=== PATIENT | female | born 1935 | race Caucasian/White ===

== ENCOUNTER 2016-11-13 12:24 | Inpatient (IN) | payer OTHER, BC ==
[~2016-11-13] VITALS: Ht 157.5 cm; Wt 87.8 kg
--- NOTE | ~2016-11-13 | H ---
[facility] [place] [address] HISTORY AND PHYSICAL Name: VIOLETA PALM Room #: 304-P ADM IN M.R.#: [id number] Admission: 11/13/16 Attend Phys: Humza Bentley, DO Discharge: Date of : 34 Report #: [id number] THIS REPORT FOR: //name// CC: Jose Manuel Bentley TYPE OF DICTATION: Admission H and P after [id number] encounter. I did see the patient and examined her on the day of admission. CHIEF COMPLAINT: The patient is transferred from [facility] secondary to fever and deteriorating of condition. HISTORY OF PRESENT ILLNESS: An 81-year-old female who was admitted to [facility] with pneumonia, and she started to have some desaturation and she was transferred to the ICU there. The patient was having pneumonia and she was treated for that, but her condition is deteriorating and she has some fevers. Oxygen saturation is decreasing, but she is on oxygen 2 liters and she is saturating well now. The patient is complaining of pain all over, but probably she cannot specify a certain place to declare as a source of the pain. Per her daughter, the patient was in the [facility] for the last 3 days and she was well and all of a sudden she deteriorated and then she became well and then she deteriorated again, so they do not know what is going on with her. REVIEW OF SYSTEMS: Except that mentioned in the HPI, all other systems are negative. PAST MEDICAL HISTORY: Includes: 1. Insulin-dependent diabetes mellitus. 2. History of CVA. 3. Coronary artery disease. 4. Congestive heart failure. 5. Status post coronary stents. 6. Hypertension and a history of CA. 7. COPD. 8. GERD. 9. Recent urinary tract infection, recurrent. 10. Osteoarthritis. 11. Depression. PAST SURGICAL HISTORY: Positive for hysterectomy and hip replacement. FAMILY HISTORY: Positive for cancer, diabetes and heart disease. SOCIAL HISTORY: She is a former smoker. Denies alcohol abuse or illicit drugs. The patient is living alone. PHYSICAL EXAMINATION: [facility] [address] [place] [address] HISTORY AND PHYSICAL Name: VIOLETA PALM Room #: 304-P [facility] IN ..#: [id number] Admission: 11/13/16 Attend Phys: Humza Bentley DO Discharge: Date of : 34 Report #: [id number] GENERAL: She is alert and oriented but hard of hearing. VITAL SIGNS: Stable. HEENT: PERRLA. Intact extraocular muscles. No icterus. NECK: Supple, no JVD, no bruit and no thyroid. CHEST: Good air entry, but there are expiratory wheezes on the right side of the chest. ABDOMEN: Lax, nontender, positive bowel sounds, no organomegaly appreciated. Obese CARDIOVASCULAR: Regular rate and rhythm. No murmur, rub or gallop. EXTREMITIES: No cyanosis, clubbing or edema. There is an ulcer on the right lower extremity. LABORATORY DATA: No available data for now. ASSESSMENT AND PLAN: 1. Acute febrile illness: This may be secondary to health care associated pneumonia. We are going to start her on antibiotics for now and we are going to follow her CBC and give her antipyretic treatment. In the same time, the patient is going to be seen by the Pulmonary. 2. Chronic obstructive pulmonary disease exacerbation seems to ____ chronic obstructive pulmonary disease. We are going to continue nebulizers, give her some steroids and follow her closely with the pulmonary doctor. 3. Insulin-dependent diabetes mellitus. We are going to check her blood sugars a.c. and bedtime and give her insulin as needed. 4. Stage III kidney disease 3. Her creatinine count is 1.01, so we ____ follow on that. 5. Coronary artery disease, status post stents and congestive heart failure. We are going to ask Cardiology to evaluate the patient for now. 6. Left lower extremity skin ulcer. Wound care. <ELECTRONICALLY SIGNED> By: Aj Bethea MD 11/14/16 0924 1413 1517 Aj Bethea MD /nt
--- NOTE | ~2016-11-13 | HC ---
[facility] [place] [address] CONSULTATION Name: VIOLETA PALM Room #: 304-P [facility] IN M.R.#: [id number] Admission: 11/13/16 Attend Phys: Sophia Medina MD Discharge: Date of : 34 Report #: [id number] THIS REPORT FOR: //name// CC: Jose Manuel Medina REASON FOR CONSULTATION: I was asked to evaluate concerning pneumonia and diarrhea. HISTORY OF PRESENT ILLNESS: The patient was an 81-year-old with underlying history of diabetes, coronary artery disease, congestive heart failure, COPD, who was hospitalized at outside hospital approximately 1 week ago with diagnosis of pneumonia, shortness of breath, low-grade fever, increased oxygen demand. While in hospital, she developed further dyspnea and was transferred to [facility] for further treatment. Found to have pneumonia and exacerbation of COPD. Since transfer, she remains on and off CPAP and BiPAP. Now off oxygen altogether. No fever, chills or sweats. Hemodynamically has remained stable. She had some loose stools starting prior to admission and that has worsened. Now incontinent. No nausea, vomiting or abdominal pain. Denies any fever or chills. Her last white count on the was normal. PAST MEDICAL HISTORY: Diabetes, stroke, coronary artery disease, congestive heart failure, coronary stents, [place], hypertension, COPD, gastroesophageal reflux, osteoarthritis, depression, hysterectomy, hip replacement, urinary tract infection, C. difficile colitis, most recent was in July. ALLERGIES: IBUPROFEN, CLINDAMYCIN, PHENERGAN, PROMETHAZINE. MEDICATIONS: As noted on her MAR including vancomycin, Zosyn, Levaquin. FAMILY HISTORY: Cancer, diabetes, heart disease. SOCIAL HISTORY: Past smoker, no significant alcohol intake. REVIEW OF SYSTEMS: As noted above. PHYSICAL EXAMINATION: VITAL SIGNS: Afebrile and hemodynamically stable. GENERAL: She is alert and cooperative, moderately obese. HEENT: Unremarkable other than hard of hearing. NECK: Supple. LUNGS: Crackles heard in the bases bilaterally. HEART: Regular without murmur. ABDOMEN: Soft, protuberant, nontender, no hepatosplenomegaly or mass appreciated. EXTREMITIES: Venous stasis dermatitis changes and a small ulceration, left pretibial skin. [address] [address] CONSULTATION Name: VIOLETA PALM Room #: 304-P ADM IN M.R.#: [id number] Admission: 11/13/16 Attend Phys: Sophia Medina MD Discharge: Date of : 34 Report #: [id number] LABORATORY STUDIES: Sodium 143, potassium 3.5, bicarbonate 29, creatinine 1.3, blood glucose 253. Liver function tests normal. Albumin at 2.7. BNP is pending from November 16. Hemoglobin is 11, white count 10, platelet count 147,000. Differential unremarkable. Vancomycin level 22 yesterday. MRSA screen pending. C. difficile PCR pending. Respiratory viral panel pending. Urinalysis, many RBCs, sputum culture pending. Chest x-ray, interstitial infiltrates improved, mild perihilar infiltrates with minimal lower lobe atelectasis. IMPRESSION: An 81-year-old with pneumonia, exacerbation of chronic obstructive pulmonary disease and heart failure, now with antibiotic-associated diarrhea, possible relapse of her Clostridium difficile colitis. Would recommend adjusting her antibiotic therapy while awaiting Clostridium difficile by PCR. <ELECTRONICALLY SIGNED> By: Dell Vizcaino MD 11/21/16 1022 1355 1080 Dell Vizcaino MD /nt
--- NOTE | ~2016-11-13 | EKG ---
[address] [place] [address] ELECTROCARDIOGRAM REPORT Name: VIOLETA PALM Room #: 304-P ADM IN M.R.#: [id number] Admission: 11/13/16 Attend Phys: Sophia Medina MD Discharge: Date of : 34 Report #: [id number] THIS REPORT FOR: //name// [facility] Test Date: 2016-11-21 Test Time: 07:40:47 Pat Name: VIOLETA PALM Department: Room: 304 Gender: F Director Investor Relations: namita : 1935 Requested By: Gavin Alexis Order Number: [id number] MD: Avel Ram Measurements Intervals [place] Rate: 57 P: 23 AR: 193 QRS: 22 QRSD: 93 T: 60 QT: 519 QTc: 506 Interpretive Statements Sinus rhythm ventricular premature complexes Inferior infarct, old Prolonged QT interval Compared to ECG 08/24/2016 16:18:24 Ventricular premature complex(es) now present Right bundle-branch block no longer present Electronically Signed On 11-22-2016 8:48:36 COMPTOMETRIST by Avel Ram [email or web address] <ELECTRONICALLY SIGNED> By: Avel Ram MD, [facility] 11/22/16 0848 0740 Avel Ram MD, [facility] /EPI
--- NOTE | ~2016-11-13 | HC ---
[facility] [place] [address] CONSULTATION Name: VIOLETA PALM Room #: 304-P ADM IN M.R.#: [id number] Admission: 11/13/16 Attend Phys: Humza Bentley DO Discharge: Date of : 34 Report #: [id number] THIS REPORT FOR: //name// CC: Jose Manuel KEMP DO Humza Bentley DATE OF SERVICE: 11/14/2016 HISTORY OF PRESENT ILLNESS: The patient is an 81-year-old single white female I was asked to see in the hospital today after she complained of being short of breath. The patient has an extensive past medical history. She has a stent placed in her LAD in 2007. Repeat heart catheterization in 2008 showed no restenosis. She has a history of paroxysmal atrial fibrillation. She was taken off of Pradaxa in the past, because of bleeding. Her last nuclear stress test in 2012 showed no ischemia. Her last echocardiogram in 2013 showed normal left ventricular function. I actually just saw her in the clinic a month ago. She is not very active because of arthritis. She currently is in assisted living. The patient apparently was admitted to [facility] last week, for the UTI. She was given IV fluids. She then readmitted 3 days ago there with confusion. Over the weekend, she had increasing shortness of breath. She was transferred to [facility] yesterday by ambulance. I was asked to see her for further evaluation and treatment. She does note occasional chest pain. She has been coughing. She is on oxygen. She has had no palpitations or syncope. PAST MEDICAL HISTORY: Otherwise significant for cataract surgery, hip replacement, bladder surgery, sleep apnea, spinal stenosis, rotator cuff repair of her shoulder. She has a history of hypertension and hyperlipidemia. She has had a history of atrial fibrillation. She has sleep apnea and chronic kidney disease. MEDICATIONS: Consists of sotalol, Symbicort, insulin, aspirin, Neurontin, Imdur, clonidine, allopurinol, sertraline, spironolactone, and torsemide. ALLERGIES: She has intolerance to IBUPROFEN. FAMILY HISTORY: Father had heart attack. SOCIAL HISTORY: She is , currently lives in an assisted living in [place], [place]. Her daughter Kristi Nieto is a nurse researcher at [employer], that I have known her for years. She did not smoke for years. No alcohol abuse. REVIEW OF SYSTEMS: She apparently had a TIA in the past with slurred speech. She has a history of asthma. No peptic ulcer disease. No liver disease. She [address] [address] CONSULTATION Name: VIOLETA PALM Room #: 304-P [facility] IN .R.#: [id number] Admission: 11/13/16 Attend Phys: Humza Bentley DO Discharge: Date of : 34 Report #: [id number] does have chronic kidney disease. No cancer. She has arthritis. No chronic skin condition. No psychiatric illness. PHYSICAL EXAMINATION: GENERAL: Revealed an elderly, frail appearing female, who is lying in bed. VITAL SIGNS: She has blood pressure of 120/70, pulse of 70. She is afebrile. HEENT: She is anicteric. Mucous membranes are moist. NECK: Veins do not appear distended. CHEST: Reveal coarse breath sounds bilaterally. CARDIAC: Regular rate and rhythm. ABDOMEN: Obese. EXTREMITIES: She had no edema. Dorsalis pedis pulse could not be palpated. SKIN: Cool and dry. DIAGNOSTIC STUDIES: She had a chest x-ray last night that showed infiltrates in the right lung and left upper lobe. No pleural effusion and mild cardiomegaly. LABORATORY DATA: Sodium 143, creatinine 1.2. Liver function studies are normal. White blood cell count is 7.5. Hematocrit 37.4. IMPRESSION AND RECOMMENDATIONS: 1. Pneumonia. The patient is on antibiotics. 2. Coronary artery disease. The patient with stable angina. 3. History of atrial fibrillation. The patient is on sotalol. She does not appear to be a very good candidate for anticoagulation. 4. Hypertension. The patient has been on a beta kayla and clonidine. 5. Diabetes. 6. Hyperlipidemia. The patient could not tolerate statin drugs. 7. Sleep apnea. 8. Chronic kidney disease. The patient has been followed by nephrology. <ELECTRONICALLY SIGNED> By: Gavin Alexis MD, [facility] 11/15/16 0951 0852 1212 Gavin Alexis MD, FAC /nt
--- NOTE | ~2016-11-13 | 2DMMODE ---
[facility] [place] [address] 2 D/M-MODE ECHOCARDIOGRAM Name: VIOLETA PALM Room #: 304-P ADM IN Richard.#: [id number] Admission: 11/13/16 Attend Phys: Sophia Medina MD Discharge: Date of : 34 Date of Service: 11/15/16 1222 Report #: [id number] THIS REPORT FOR: //name// Transthoracic Echocardiography Ordering Gavin Alexis M.D., F.A.C.C. physician: Referring Gavin Alexis M.D., F.A.C.Chasity Muñoz, physician: Jose Manuel Meter Record Clerk: Radhika Castano Indications/History: Short of breath. Hx: CAD, Stents, CHF, CVA, Afib, COPD, DM, HTN, HLP BP: 149 / HR: 68bpm Height: 62in Weight: 195.6lb 79 Study data: M-mode, complete 2D, complete spectral Doppler, and color Doppler. Location: Bedside. Routine. Image quality was adequate. 2D measurements Normal Normal LVID ED 48.6mm 36-57 IVS ED 13.1mm 6-11 LVID ES 28.5mm 23-40 LVPW ED 12.8mm 6-11 LA volume 37ml/m2 16-28 AoRoot diam 29.2mm 21-37 index ED LVOT diameter 19mm 18-23 Findings: Left ventricle: The cavity size was normal. Wall thickness was increased in a pattern of mild LVH. Systolic function was hyperdynamic. The estimated ejection fraction was in the range of 65% to 70%. Wall motion was normal. Right ventricle: The cavity size was normal. Systolic function was normal. Right atrium: The atrium was normal in size. Left atrium: The atrium was moderately dilated. Volume index: 37ml/m2 (S). Aortic valve: Poorly visualized. Doppler: There was very [facility] [address] [place] [place] [address] 2 D/M-MODE ECHOCARDIOGRAM Name: VIOLETA PALM Room #: 304-P ADM IN M.R.#: [id number] Admission: 11/13/16 Attend Phys: Sophia Medina MD Discharge: Date of : 34 Date of Service: 11/15/16 1222 Report #: [id number] mild stenosis. Trivial regurgitation. Peak velocity: 265.6cm/s (S). Mean gradient: 13.1mm Hg (S). Peak gradient: 28.2mm Hg (S). Mitral valve: Moderately to severely calcified annulus. Doppler: The findings are consistent with trivial stenosis. Mild regurgitation. Peak E-wave velocity: 142.4cm/s. Peak gradient: 8.1mm Hg (D). Peak A-wave velocity: 133.2cm/s. Tricuspid valve: Structurally normal valve. Doppler: There was no evidence for stenosis. Moderate regurgitation. Regurgitant peak velocity: 415cm/s. Peak RV-RA gradient: 69mm Hg (S). Pulmonic valve: Poorly visualized. Doppler: There was no evidence for stenosis. Pericardium: There was no pericardial effusion. Aorta: Aortic root: The aortic root was normal in size. Pulmonary artery: Systolic pressure was estimated to be 60mm Hg. Diastolic function: Features are consistent with a pseudonormal left ventricular filling pattern, with concomitant abnormal relaxation and increased filling pressure (grade 2 diastolic dysfunction). Systemic veins: Inferior vena cava: The vessel was normal in size; respirophasic changes in dimension were absent. Conclusions 1. Left ventricle: The cavity size was normal. Wall thickness was increased in a pattern of mild LVH. Systolic function was hyperdynamic. The estimated ejection fraction was in the range of 65% to 70%. 2. Left atrium: The atrium was moderately dilated. 3. Aortic valve: There was very mild stenosis. Peak gradient: 28.2mm Hg (S). 4. Mitral valve: The findings are consistent with trivial stenosis. Mild regurgitation. 5. Tricuspid valve: Moderate regurgitation. 6. Pulmonary arteries: Systolic pressure was estimated to be 60mm Hg. <ELECTRONICALLY SIGNED> By: Gavin Alexis MD, FACC 11/15/16 1453 1222 1453 Gavin Alexis MD, FACC /[place]
--- NOTE | ~2016-11-13 | EKG ---
[address] [place] [address] ELECTROCARDIOGRAM REPORT Name: VIOLETA PALM Room #: 304-P ADM IN M.R.#: [id number] Admission: 11/13/16 Attend Phys: Sophia Medina MD Discharge: Date of : 34 Report #: [id number] THIS REPORT FOR: //name// [facility] Test Date: 2016-11-20 Test Time: 07:38:45 Pat Name: VIOLETA PALM Department: Room: 304 P Gender: F Repairer Helper: KIARA : 1935 Requested By: Gavin Alexis Order Number: [id number] MD: Avel Ram Measurements Intervals [place] Rate: 67 P: ME: QRS: 39 QRSD: 146 T: 11 QT: 499 QTc: 527 Interpretive Statements Atrial fibrillation Right bundle branch block Inferior infarct, old Compared to ECG 08/24/2016 16:18:24 Atrial fibrillation has replaced PSVT Electronically Signed On 11-22-2016 8:30:47 COMPLIANCE PROJECT MANAGER by Avel Ram [email or web address] <ELECTRONICALLY SIGNED> By: Avel Ram MD, [facility] 11/22/16 0830 737 7 Avel Ram MD, FACC /EPI
--- NOTE | ~2016-11-13 | HC ---
[facility] [place] [address] CONSULTATION Name: VIOLETA PALM Room #: 304-P [facility] IN ..#: [id number] Admission: 11/13/16 Attend Phys: Sophia Medina MD Discharge: 11/23/16 Date of : 34 Report #: [id number] THIS REPORT FOR: //name// CC: Jose Manuel Medina DATE OF SERVICE: 11/16/2016 PERSONAL PHYSICIAN: Remington Hermosillo MD CHIEF COMPLAINT: Left lower extremity atraumatic wound. HISTORY OF PRESENT ILLNESS: This is an 81-year-old white female who is currently admitted to the hospital for increasing shortness of breath over the past several days. The patient was diagnosed with pneumonia, is currently on IV antibiotics. The patient states that approximately 2 weeks ago, she struck her leg on her hospital bed, suffered a traumatic wound. The patient states that she was concerned that she might be getting an infection in that wound and requested to be seen by a cardiology clinical nurse specialist while she was here in the hospital. The patient denies any other associated wound except for small skin tear to her left forearm. The patient states she has really no pain in her left leg. The patient denies any actual swelling in her legs now, but had swelling prior to the hospitalization, but these have resolved. PAST MEDICAL HISTORY: Significant for previous hip replacement, sleep apnea, spinal stenosis, hypertension, hyperlipidemia, chronic atrial fibrillation, and chronic kidney disease. CURRENT MEDICATIONS: Multiple, I reviewed the patient's medication list. DRUG ALLERGIES: IBUPROFEN. SOCIAL HISTORY: The patient has a remote history of smoking, quit 18 years ago, lives in an assisted living facility. REVIEW OF SYSTEMS: CONSTITUTIONAL: The patient denies fevers or chills at this time. NEUROLOGIC: The patient with overall generalized weakness. EYES: No complaints. RESPIRATORY: The patient is currently short breath with associated wheezing and she is on oxygen. GASTROINTESTINAL: The patient denies nausea, vomiting, or abdominal pain. GENITOURINARY: The patient denies urgency or frequency. MUSCULOSKELETAL: No complaints. SKIN: The patient has a traumatic wound, which appears to be healing on the left lower extremity. [address] [address] CONSULTATION Name: VIOLETA PALM Room #: 304-P [facility] IN ..#: [id number] Admission: 11/13/16 Attend Phys: Sophia Medina MD Discharge: 11/23/16 Date of : 34 Report #: [id number] PHYSICAL EXAMINATION: VITAL SIGNS: Stable. The patient is afebrile. GENERAL: This is an alert and oriented x3, pleasant white female who is absolutely in no distress. HEENT: Normocephalic and atraumatic. Mucous membranes are dry. Pupils are round. Sclerae are white. Nasal cannula is in place. NECK: Without JVD or masses. BACK: Nontender. LUNGS: Slight diminished breath sounds with scattered wheezes heard throughout. HEART: Irregularly irregular. ABDOMEN: Soft, otherwise nontender and obese. EXTREMITIES: Evaluation of bilateral lower extremities reveals trace to 1+ edema with distal neurovascular otherwise intact. Evaluation of left lower extremity reveals a traumatic wound, which measures 1.8 x 0.6 x 0.3 cm. It is fairly clean and granulating. Periwound itself is otherwise intact without signs of erythema, warmth or tenderness. There are no signs of any odor. NEUROLOGIC: Cranial nerves 2-12 are grossly intact. Motor and sensory are grossly intact. LABORATORY VALUES: White count 10.1 and hemoglobin 11.5. IMPRESSION: 1. Traumatic wound in the left pretibial region, present on admission, overall improving. 2. Chronic lower extremity edema, overall controlled. 3. Pneumonia. 4. Generalized debility. PLAN: At this time, we will start the patient with Optifoam AG over the left lower extremity wound, have this changed every 2 days. The patient refuses any type of compression at this time over the lower extremities. However, raise her legs as much as possible to control the edema. We will continue to follow the patient. We will try to maximize her protein supplementation for healing. We will once again continue to follow the status. <ELECTRONICALLY SIGNED> By: Alvaro Mensah MD 12/01/16 1257 1636 0236 Alvaro Mensah MD /nt
[~2016-11-13 12:24] MED LIST: ACCUPRIL40 MG PO; AGGRENOX 25 MG1 EACH PO; ALBUTEROL2.5 MG/31; ALDACTONE25 MG PO; ALLOPURINOL 30300 M2 PO; ASPIRIN EC81 M1 PO; ASPIRIN325 PO; ASPIRIN81 M2 PO; B-COMPLEX-VITA1 EACH PO; CARDIZEM CD120 MG PO; CARVEDILOL6.25 MG PO; CLONIDINE HCL0.3 M2 PO; CLONIDINE HCL0.3 M3 PO; CO Q-10100 MG PO; COREG CR20 MG PO; COZAAR 50 MG TA50 M1 PO; DUONEB 2.5-0.5 M3 ML INH; FISH OIL 1,0001 EAC5 PO; FLAX OIL1000 MG PO; HUMALOG MI100 UNIT/6 SUBQ; HUMALOG100 UNIT/1 SUBQ; HYDROCODON-ACE1 EAC2 PO; HYDROCODON-ACE1 EAC8 PO; IMDUR 30 MG TAB30 M1 PO; K-DUR 20 MEQ T20 MEQ PO; KLOR-CON 1010 MEQ PO; LANTUS SUBQ; LASIX 80 MG TAB80 M1 PO; LASIX 80 MG TAB80 MG PO; LIPITOR20 MG PO; MAG6464 MG PO; METOLAZONE 2.52.5 M1 PO; MULTI VITAMIN1 EACH PO; NEURONTIN 300300 M1 PO; NITROSTAT0.4 M1 SL; NORCO 7.5-3251 EACH PO; POTASSIUM CHLO20 ME2 PO; POTASSIUM20 PO; PRADAXA150 MG PO; PREDNISONE 5 MG5 M1 PO; PROAIR HFA8.5 GM PO; SORINE 80 MG TA80 M1 PO; SYMBICORT160 MCG/4. INH; TESSALON PERLE100 MG PO; TORSEMIDE20 MG PO; VENTOLIN HFA 1818 GM INH; VITAMIN D1000 UNI1 PO; VITAMINC500 PO; ZOLOFT100 MG PO
[2016-11-13 13:28] VITALS: BP 230/83
[2016-11-13 13:52] VITALS: BP 230/83
[2016-11-13 18:35] LABS: URINE BILIRUBIN NEGATIVE (Negative); URINE BLOOD 3+ (Negative); URINE COLOR YELLOW; URINE GLUCOSE-RANDOM* NEGATIVE (Negative); URINE KETONES NEGATIVE (Negative); URINE NITRITE NEGATIVE (Negative); URINE PROTEIN (DIPSTICK) TRACE (Negative); URINE UROBILINOGEN 0.2 E.U./dl (0.2-1.0)
[2016-11-13 18:46] LABS: CASTS None Seen /LPF (None Seen); SQUAMOUS 0-3 Few /LPF (0-3)
[2016-11-13 18:47] LABS: BACTERIA None Seen /HPF (None Seen); CRYSTALS None Seen /LPF (None Seen); URINE RBC >20 Many /HPF (0-2); URINE WBC 0-5 Rare /HPF (0-5)
[2016-11-13 19:20] VITALS: BP 133/61
[2016-11-13 23:49] VITALS: BP 112/60
[2016-11-14 02:17] VITALS: BP 147/70
[2016-11-14 03:59] LABS: HEMATOCRIT 37.4 % (37.0-47.0); HEMOGLOBIN 11.8 gm/dL (12.0-15.0); MCHC 31.6 % (28.0-37.0); MCV 91.8 fL (80.0-100.0); RBC 4.08 mil/uL (4.20-5.00); RDW 17.1 % (10.5-14.5); WBC 7.5 thou/uL (4.0-11.0)
[2016-11-14 04:17] LABS: ALBUMIN 2.5 g/dL (3.4-5.0); CALCIUM 8.5 mg/dL (8.5-10.1); CREATININE 1.2 mg/dL (0.6-1.3); MAGNESIUM 1.8 mg/dL (1.8-2.4); TOTAL BILIRUBIN 0.6 mg/dL (<0.1-1.0); TOTAL PROTEIN 6.1 g/dL (6.4-8.2)
[2016-11-14 07:06] LABS: ABG SAMPLE TYPE ARTERIAL; BE(vivo) 3.1 mmol/L (-2 to +3); LACTATE 1.32 mmol/L (0.5-2.0); O2(CT) 16.6 mL/dL (15.0-23.0); O2Hb 94.3 % (92.0-98.0); PCO2 63.8 mmHg (35.0-45.0); PO2 74.6 mmHg (80.0-100.0); sO2 93.2 % (92.0-98.0); tCO2 32.9 mmol/L (24.0-30.0)
[2016-11-14 07:07] LABS: STICK SITE R.BRACHIAL; pH 7.304 (7.360-7.450)
[2016-11-14 08:24] VITALS: BP 125/77
[2016-11-14 12:14] VITALS: BP 112/42
[2016-11-14 13:37] LABS: ABG SAMPLE TYPE ARTERIAL; BE(vivo) 3.7 mmol/L (-2 to +3); HCO3 30.1 mmol/L (22.0-26.0); LACTATE 2.11 mmol/L (0.5-2.0); O2(CT) 15.1 mL/dL (15.0-23.0); O2Hb 91.2 % (92.0-98.0); PCO2 53.9 mmHg (35.0-45.0); PO2 60.7 mmHg (80.0-100.0); pH 7.365 (7.360-7.450); sO2 90.1 % (92.0-98.0); tCO2 31.8 mmol/L (24.0-30.0)
[2016-11-14 13:38] LABS: STICK SITE R.BRACHIAL
[2016-11-14 16:08] VITALS: BP 111/54
[2016-11-14 20:00] VITALS: BP 133/68
[2016-11-15 03:32] VITALS: BP 113/53
[2016-11-15 04:43] LABS: HEMATOCRIT 33.8 % (37.0-47.0); HEMOGLOBIN 11.2 gm/dL (12.0-15.0); MCH 29.5 pg (26.0-34.0); MCHC 33.3 % (28.0-37.0); MCV 88.6 fL (80.0-100.0); PLATELET COUNT 126 thou/uL (150-400); RBC 3.82 mil/uL (4.20-5.00); RDW 17.1 % (10.5-14.5); WBC 8.7 thou/uL (4.0-11.0)
[2016-11-15 04:49] LABS: MANUAL DIFF YES
[2016-11-15 05:01] LABS: ALBUMIN 2.7 g/dL (3.4-5.0); CALCIUM 8.5 mg/dL (8.5-10.1); CREATININE 1.5 mg/dL (0.6-1.3); POTASSIUM 4.7 mmol/L (3.5-5.1); TOTAL BILIRUBIN 0.4 mg/dL (<0.1-1.0); TOTAL PROTEIN 5.7 g/dL (6.4-8.2)
[2016-11-15 05:20] LABS: ABSOLUTE NEUTROPHILS 7.6 thou/uL (1.4-8.2); TOTAL CELL COUNT 100
[2016-11-15 05:21] LABS: TOXIC GRANULATION 1+
[2016-11-15 07:09] LABS: ABG SAMPLE TYPE ARTERIAL; BE(vivo) 0.9 mmol/L (-2 to +3); HCO3 27.2 mmol/L (22.0-26.0); LACTATE 1.93 mmol/L (0.5-2.0); O2(CT) 15.6 mL/dL (15.0-23.0); O2Hb 92.2 % (92.0-98.0); PCO2 50.5 mmHg (35.0-45.0); PO2 65.9 mmHg (80.0-100.0); STICK SITE R.BRACHIAL; pH 7.349 (7.360-7.450); sO2 91.8 % (92.0-98.0); tCO2 28.7 mmol/L (24.0-30.0)
[2016-11-15 11:44] VITALS: BP 149/79
[2016-11-15 18:47] VITALS: BP 169/79
[2016-11-15 20:00] VITALS: BP 144/79
[2016-11-16 04:00] VITALS: BP 182/88
[2016-11-16 05:30] LABS: HEMATOCRIT 35.6 % (37.0-47.0); HEMOGLOBIN 11.5 gm/dL (12.0-15.0); MCH 29.1 pg (26.0-34.0); MCHC 32.3 % (28.0-37.0); RBC 3.95 mil/uL (4.20-5.00); WBC 10.1 thou/uL (4.0-11.0)
[2016-11-16 05:49] LABS: CALCIUM 9.1 mg/dL (8.5-10.1); CREATININE 1.3 mg/dL (0.6-1.3); POTASSIUM 4.2 mmol/L (3.5-5.1)
[2016-11-16 08:26] VITALS: BP 133/58
[2016-11-16 13:24] VITALS: BP 133/101
[2016-11-16 16:42] VITALS: BP 157/71
[2016-11-16 19:10] VITALS: BP 187/75
[2016-11-16 23:20] VITALS: BP 159/79
[2016-11-17] VITALS (7 sets, daily range): BP systolic 135–198; BP diastolic 65–89
[2016-11-17 07:05] LABS: CREATININE 1.3 mg/dL (0.6-1.3); POTASSIUM 3.5 mmol/L (3.5-5.1)
[2016-11-17 07:36] LABS: ABG SAMPLE TYPE ARTERIAL; BE(vivo) 3.3 mmol/L (-2 to +3); HCO3 28.6 mmol/L (22.0-26.0); LACTATE 2.06 mmol/L (0.5-2.0); O2(CT) 14.4 mL/dL (15.0-23.0); PCO2 46.2 mmHg (35.0-45.0); PO2 53.4 mmHg (80.0-100.0); STICK SITE R.BRACHIAL; pH 7.409 (7.360-7.450); sO2 87.8 % (92.0-98.0)
[2016-11-17 07:39] LABS: ABG COMMENT PT WAS ON ROOM AIR
[2016-11-18 03:40] VITALS: BP 159/70
[2016-11-18 07:13] VITALS: BP 184/78
[2016-11-18 15:51] VITALS: BP 135/66
[2016-11-18 20:00] VITALS: BP 134/76
[2016-11-19] VITALS: BP 139/83
[2016-11-19 02:10] LABS: INFLUENZA B Negative (Negative); METAPNEUMOVIRUS Negative (Negative)
[2016-11-19 04:00] VITALS: BP 149/77
[2016-11-19 06:12] LABS: HEMATOCRIT 36.7 % (37.0-47.0); HEMOGLOBIN 12.3 gm/dL (12.0-15.0); MCH 29.4 pg (26.0-34.0); MCHC 33.5 % (28.0-37.0); MCV 87.9 fL (80.0-100.0); PLATELET COUNT 177 thou/uL (150-400); RBC 4.17 mil/uL (4.20-5.00); RDW 16.8 % (10.5-14.5); WBC 12.1 thou/uL (4.0-11.0)
[2016-11-19 06:15] LABS: MANUAL DIFF YES
[2016-11-19 06:20] LABS: CALCIUM 8.7 mg/dL (8.5-10.1); CREATININE 1.3 mg/dL (0.6-1.3); MAGNESIUM 2.1 mg/dL (1.8-2.4); POTASSIUM 3.7 mmol/L (3.5-5.1)
[2016-11-19 06:44] LABS: ABSOLUTE NEUTROPHILS 11.3 thou/uL (1.4-8.2); ANISOCYTOSIS 1+; POLYCHROMASIA OCCASIONAL; TOTAL CELL COUNT 100
[2016-11-19 08:00] VITALS: BP 150/91
[2016-11-19 11:15] VITALS: BP 128/78
[2016-11-19 15:25] VITALS: BP 120/71
[2016-11-19 20:00] VITALS: BP 141/79
[2016-11-20 04:00] VITALS: BP 145/84
[2016-11-20 06:44] LABS: HEMATOCRIT 37.5 % (37.0-47.0); HEMOGLOBIN 12.4 gm/dL (12.0-15.0); MCHC 33.1 % (28.0-37.0); MCV 87.6 fL (80.0-100.0); PLATELET COUNT 199 thou/uL (150-400); RBC 4.28 mil/uL (4.20-5.00); RDW 17.1 % (10.5-14.5)
[2016-11-20 06:59] LABS: MANUAL DIFF YES
[2016-11-20 07:01] LABS: CALCIUM 9.1 mg/dL (8.5-10.1); CREATININE 1.3 mg/dL (0.6-1.3); MAGNESIUM 2.2 mg/dL (1.8-2.4); POTASSIUM 3.9 mmol/L (3.5-5.1)
[2016-11-20 07:53] LABS: ABSOLUTE NEUTROPHILS 11.4 thou/uL (1.4-8.2); PLATELET ESTIMATE NORMAL; TOTAL CELL COUNT 100
[2016-11-20 09:15] VITALS: BP 122/72
[2016-11-20 12:40] VITALS: BP 131/67
[2016-11-20 15:17] LABS: URINE BILIRUBIN NEGATIVE (Negative); URINE BLOOD NEGATIVE (Negative); URINE COLOR YELLOW; URINE GLUCOSE-RANDOM* 1+ (Negative); URINE KETONES NEGATIVE (Negative); URINE LEUKOCYTES-REFLEX NEGATIVE (Negative); URINE PROTEIN (DIPSTICK) NEGATIVE (Negative); URINE UROBILINOGEN 0.2 E.U./dl (0.2-1.0)
[2016-11-20 16:10] LABS: FREE T4 1.71 ng/dL (0.82-1.77); TSH 0.292 uIU/mL (0.450-4.500)
[2016-11-20 17:15] VITALS: BP 139/78
[2016-11-20 19:55] VITALS: BP 145/83
[2016-11-21 04:00] VITALS: BP 129/74
[2016-11-21 05:58] LABS: HEMATOCRIT 38.3 % (37.0-47.0); HEMOGLOBIN 12.5 gm/dL (12.0-15.0); MCH 28.8 pg (26.0-34.0); MCHC 32.7 % (28.0-37.0); MCV 88.2 fL (80.0-100.0); PLATELET COUNT 211 thou/uL (150-400); RBC 4.34 mil/uL (4.20-5.00); RDW 17.3 % (10.5-14.5); WBC 14.6 thou/uL (4.0-11.0)
[2016-11-21 06:02] LABS: CALCIUM 9.2 mg/dL (8.5-10.1); CREATININE 1.4 mg/dL (0.6-1.3); POTASSIUM 4.4 mmol/L (3.5-5.1)
[2016-11-21 06:31] LABS: MANUAL DIFF YES
[2016-11-21 08:20] VITALS: BP 125/70
[2016-11-21 08:47] LABS: ABSOLUTE NEUTROPHILS 13.1 thou/uL (1.4-8.2); MYELOCYTES 1 %; TOTAL CELL COUNT 100
[2016-11-21 08:48] LABS: ANISOCYTOSIS 1+
[2016-11-21 16:25] VITALS: BP 153/74
[2016-11-21 20:04] VITALS: BP 153/80
[2016-11-22 03:35] VITALS: BP 150/73
[2016-11-22 05:36] LABS: ABSOLUTE NEUTROPHILS 12.2 thou/uL (1.4-8.2); BASOPHILS 0.1 % (0.0-2.0); HEMATOCRIT 36.2 % (37.0-47.0); HEMOGLOBIN 11.7 gm/dL (12.0-15.0); LYMPHOCYTES 6.1 % (24.0-44.0); MCHC 32.4 % (28.0-37.0); MCV 89.5 fL (80.0-100.0); MONOCYTES 7.5 % (1.0-8.0); PLATELET COUNT 171 thou/uL (150-400); POLYS 86.3 % (36.0-66.0); RBC 4.04 mil/uL (4.20-5.00); WBC 14.2 thou/uL (4.0-11.0)
[2016-11-22 05:39] LABS: MANUAL DIFF NO
[2016-11-22 06:02] LABS: ALBUMIN 2.7 g/dL (3.4-5.0); CALCIUM 8.9 mg/dL (8.5-10.1); CREATININE 1.3 mg/dL (0.6-1.3); MAGNESIUM 2.4 mg/dL (1.8-2.4); POTASSIUM 4.9 mmol/L (3.5-5.1); TOTAL BILIRUBIN 0.6 mg/dL (<0.1-1.0); TOTAL PROTEIN 5.6 g/dL (6.4-8.2)
[2016-11-22 08:01] VITALS: BP 130/78
[2016-11-22 11:53] VITALS: BP 138/75
[2016-11-22 15:34] VITALS: BP 138/78
[2016-11-22 19:41] VITALS: BP 135/64
[2016-11-23 03:10] VITALS: BP 134/70
[2016-11-23 06:27] LABS: ABSOLUTE NEUTROPHILS 11.2 thou/uL (1.4-8.2); BASOPHILS 0.2 % (0.0-2.0); EOSINOPHILS 0.1 % (0.0-3.0); HEMATOCRIT 35.8 % (37.0-47.0); HEMOGLOBIN 11.6 gm/dL (12.0-15.0); LYMPHOCYTES 7.7 % (24.0-44.0); MCH 29.2 pg (26.0-34.0); MCHC 32.5 % (28.0-37.0); MCV 89.7 fL (80.0-100.0); MONOCYTES 5.3 % (1.0-8.0); PLATELET COUNT 163 thou/uL (150-400); POLYS 86.7 % (36.0-66.0); RBC 3.98 mil/uL (4.20-5.00); RDW 16.9 % (10.5-14.5); WBC 12.9 thou/uL (4.0-11.0)
[2016-11-23 06:30] LABS: MANUAL DIFF NO
[2016-11-23 06:40] LABS: CREATININE 1.3 mg/dL (0.6-1.3); POTASSIUM 4.8 mmol/L (3.5-5.1)
[2016-11-23 07:34] VITALS: BP 150/69
[2016-11-23] MEDS ORDERED: DEMADEX20 MG PO (11:47)
[2016-11-23] MEDS ORDERED: HUMALOG100 UNIT/1 SUBQ (11:47)
[2016-11-23] MEDS ORDERED: LANTUS100 UNIT/M SUBQ (11:47)
[2016-11-23] MEDS ORDERED: SORINE 80 MG TA80 M1 PO (11:48)
[2016-11-23] MEDS ORDERED: CARDIZEM60 MG PO (11:48)
[2016-12-28] MEDS ORDERED: LANTUS100 UNIT/M SUBQ ×2 (16:30→16:45)
[2016-12-28] MEDS ORDERED: PEPCID20 MG PO (16:32)
[2016-12-28] MEDS ORDERED: COLACE100 MG PO (16:50)
[2016-12-28] MEDS ORDERED: CLARITIN10 MG PO (16:52)
[2016-12-29] MEDS ORDERED: SORINE 80 MG TA80 MG PO (10:47)
[2016-12-31] MEDS ORDERED: PRADAXA150 MG PO (12:31)
[2016-12-31] MEDS ORDERED: SORINE 80 MG TA80 M1 PO (12:31)
[2017-01-05] MEDS ORDERED: PRADAXA150 MG PO (17:34)
[2017-01-10] MEDS ORDERED: OMEPRAZOLE20 M1 PO (13:01)
[2017-01-16] MEDS ORDERED: ASA5UEC PO (14:58)
[2017-01-16] MEDS ORDERED: DEMADEX20 MG PO (15:40)
== END 2016-11-23 14:32 | DRG 871 ==
LOC: 3N 12:24
PROVIDERS: Family Medicine; Hospitalist; Internal Medicine Cardiovascular Disease; Internal Medicine Geriatric Medicine; Internal Medicine Pulmonary Disease; Nurse Practitioner; Specialist
PROC: 5A09357 Assistance with Respiratory Ventilation, Less than 24 Consecutive Hours, Continuous Positive Airway Pressure (ICD-10-PCS; principal; 2016-11-17)
PROC: B5161ZA Fluoroscopy of Right Subclavian Vein using Low Osmolar Contrast, Guidance (ICD-10-PCS; 2016-11-17)
PROC: 05H533Z Insertion of Infusion Device into Right Subclavian Vein, Percutaneous Approach (ICD-10-PCS; 2016-11-17)
DX: A41.9 Sepsis, unspecified organism (principal); J18.9 Pneumonia, unspecified organism; J96.01 Acute respiratory failure with hypoxia; J96.02 Acute respiratory failure with hypercapnia; J44.1 Chronic obstructive pulmonary disease with (acute) exacerbation; L97.929 Non-pressure chronic ulcer of unspecified part of left lower leg with unspecified severity; I13.0 Hypertensive heart and chronic kidney disease with heart failure and stage 1 through stage 4 chronic kidney disease, or unspecified chronic kidney disease; I50.32 Chronic diastolic (congestive) heart failure; I48.0 Paroxysmal atrial fibrillation; Z96.649 Presence of unspecified artificial hip joint; E78.5 Hyperlipidemia, unspecified; I25.10 Atherosclerotic heart disease of native coronary artery without angina pectoris; K21.9 Gastro-esophageal reflux disease without esophagitis; M19.90 Unspecified osteoarthritis, unspecified site; R19.7 Diarrhea, unspecified; G47.33 Obstructive sleep apnea (adult) (pediatric); I27.2 Other secondary pulmonary hypertension; E11.22 Type 2 diabetes mellitus with diabetic chronic kidney disease; N18.3 Chronic kidney disease, stage 3 (moderate); F32.9 Major depressive disorder, single episode, unspecified; M48.00 Spinal stenosis, site unspecified; Z90.710 Acquired absence of both cervix and uterus; Z87.440 Personal history of urinary (tract) infections; Z88.6 Allergy status to analgesic agent; Z88.1 Allergy status to other antibiotic agents; Z88.8 Allergy status to other drugs, medicaments and biological substances; Z98.49 Cataract extraction status, unspecified eye; Z87.891 Personal history of nicotine dependence; Z86.73 Personal history of transient ischemic attack (TIA), and cerebral infarction without residual deficits; Z95.5 Presence of coronary angioplasty implant and graft; I25.2 Old myocardial infarction; Z79.4 Long term (current) use of insulin; Z79.82 Long term (current) use of aspirin; Z79.899 Other long term (current) drug therapy; Z79.52 Long term (current) use of systemic steroids; Z82.49 Family history of ischemic heart disease and other diseases of the circulatory system; Z80.9 Family history of malignant neoplasm, unspecified; Z83.3 Family history of diabetes mellitus; S91.302A Unspecified open wound, left foot, initial encounter; X58.XXXA Exposure to other specified factors, initial encounter; Y93.89 Activity, other specified; Y92.89 Other specified places as the place of occurrence of the external cause; Y99.8 Other external cause status
CPT/HCPCS: 10096; 27001; 52295

== ENCOUNTER → 2016-12-07 | Outpatient (CLI) | payer OTHER, BC ==
[~2016-12-07] MED LIST changes: +ASA5UEC PO; +CARDIZEM60 MG PO; +CLARITIN10 MG PO; +COLACE100 MG PO; +DEMADEX20 MG PO; +LANTUS100 UNIT/M SUBQ; +OMEPRAZOLE20 M1 PO; +PEPCID20 MG PO; +SORINE 80 MG TA80 MG PO
== END ==
LOC: RAD 07:42
DX: R91.8 Other nonspecific abnormal finding of lung field (principal)

== ENCOUNTER 2017-02-08 13:45 | Emergency (ER) | payer OTHER, BC ==
[~2017-02-08] VITALS: Ht 152.4 cm; Wt 83.9 kg
--- NOTE | ~2017-02-08 | EKG ---
[place] [address] [place] [address] ELECTROCARDIOGRAM REPORT Name: VIOLETA PALM [id number] Admission: 02/08/17 Attend Phys: Discharge: 02/08/17 Date of : 34 Report #: [id number] THIS REPORT FOR: //name// [facility] ED Test Date: 2017-02-08 Test Time: 15:32:06 Pat Name: VIOLETA PALM Department: Room: Gender: F Human Resources Office Assistant: NAYA : 1935 Requested By: Evy Mcdaniel Order Number: [id number] MD: Avel Ram Measurements Intervals [place] Rate: 55 P: -29 CT: 233 QRS: 33 QRSD: 94 T: 64 QT: 513 QTc: 491 Interpretive Statements Sinus rhythm Prolonged CT interval Possible Inferior infarct, old Compared to ECG 12/28/2016 10:50:29 First degree AV block now present Right bundle-branch block no longer present Electronically Signed On 02-09-2017 8:25:30 CDT by Avel aRm [email or web address] <ELECTRONICALLY SIGNED> By: Avel Ram MD, [facility] 02/09/17 0825 1532 153 Avel Ram MD, [facility] /EPI
[2017-02-08 14:33] LABS: ABSOLUTE NEUTROPHILS 7.6 thou/uL (1.4-8.2); BASOPHILS 1.4 % (0.0-2.0); EOSINOPHILS 3.4 % (0.0-3.0); HEMOGLOBIN 8.3 gm/dL (12.0-15.0); LYMPHOCYTES 17.6 % (24.0-44.0); MCH 24.2 pg (26.0-34.0); MCHC 31.8 g/dL (28.0-37.0); PLATELET COUNT 255 thou/uL (150-400); POLYS 70.6 % (36.0-66.0); RBC 3.42 mil/uL (4.20-5.00); RDW 19.7 % (10.5-14.5); WBC 10.7 thou/uL (4.0-11.0)
[2017-02-08 14:42] LABS: ANION GAP 6 mmol/L (7-16); BUN 45 mg/dL (7-18); CHLORIDE 105 mmol/L (98-107); CO2 29 mmol/L (21-32); CREATININE 1.5 mg/dL (0.6-1.3); GLUCOSE 181 mg/dL (70-99); POTASSIUM 4.3 mmol/L (3.5-5.1); SODIUM 140 mmol/L (136-145)
[2017-02-08 14:44] LABS: MANUAL DIFF NO
[2017-02-08 14:49] LABS: ALBUMIN 3.4 g/dL (3.4-5.0); ALKALINE PHOSPHATASE 97 U/L (46-116); PROTIME 9.8 Seconds (9.3-11.4); SGOT 17 U/L (15-37); SGPT 20 U/L (30-65); TOTAL BILIRUBIN 0.3 mg/dL (<0.1-1.0); TOTAL PROTEIN 6.5 g/dL (6.4-8.2); TROPONIN-I < 0.04 ng/mL (<0.04-0.07)
== END 2017-02-08 17:48 | disposition home or self-care (01) ==
LOC: ER 13:45
PROVIDERS: Physician Assistant
DX: S37.099A Other injury of unspecified kidney, initial encounter (principal); S09.90XA Unspecified injury of head, initial encounter; S69.82XA Other specified injuries of left wrist, hand and finger(s), initial encounter; K92.2 Gastrointestinal hemorrhage, unspecified; R42 Dizziness and giddiness; E11.22 Type 2 diabetes mellitus with diabetic chronic kidney disease; I13.0 Hypertensive heart and chronic kidney disease with heart failure and stage 1 through stage 4 chronic kidney disease, or unspecified chronic kidney disease; N18.9 Chronic kidney disease, unspecified; I50.9 Heart failure, unspecified; J44.9 Chronic obstructive pulmonary disease, unspecified; I48.91 Unspecified atrial fibrillation; Z86.79 Personal history of other diseases of the circulatory system; Z86.73 Personal history of transient ischemic attack (TIA), and cerebral infarction without residual deficits; Z95.5 Presence of coronary angioplasty implant and graft; Z90.710 Acquired absence of both cervix and uterus; Z96.612 Presence of left artificial shoulder joint; Z96.611 Presence of right artificial shoulder joint; Z88.6 Allergy status to analgesic agent; Z88.8 Allergy status to other drugs, medicaments and biological substances; F17.210 Nicotine dependence, cigarettes, uncomplicated; W19.XXXA Unspecified fall, initial encounter; Y93.89 Activity, other specified; Y92.002 Bathroom of unspecified non-institutional (private) residence as the place of occurrence of the external cause; Y99.8 Other external cause status

== ENCOUNTER 2017-04-07 11:06 | Inpatient (IN) | payer OTHER, BC ==
[~2017-04-07] VITALS: Ht 152.4 cm; Wt 83.0 kg
--- NOTE | ~2017-04-07 | EKG ---
[address] [employer] [place] [address] ELECTROCARDIOGRAM REPORT Name: VIOLETA PALM Room #: 539-P ADM IN M.R.#: [id number] Admission: 04/07/17 Attend Phys: Angel Cordoba MD Discharge: Date of : 34 Report #: [id number] THIS REPORT FOR: //name// [facility] ED Test Date: 2017-04-07 Test Time: 11:33:02 Pat Name: VIOLETA PALM Department: Room: 539 Gender: F Jewelsmith: MZOOK : 1935 Requested By: Renetta Santiago Order Number: [id number] MD: Avel Ram Measurements Intervals [place] Rate: 89 P: 50 MD: 194 QRS: 110 QRSD: 154 T: 9 QT: 431 QTc: 525 Interpretive Statements Sinus rhythm RBBB and LPFB Inferior infarct, old Compared to ECG 02/08/2017 15:32:06 Left posterior fascicular block now present Right bundle-branch block now present Electronically Signed On 04-08-2017 11:26:49 CDT by Avel Ram [email or web address] <ELECTRONICALLY SIGNED> By: Avel Ram MD, [facility] 04/08/17 1126 1133 1133 Avel Ram MD, [facility] /EPI
--- NOTE | ~2017-04-07 | EKG ---
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 Electronically Signed On 04-08-2017 11:29:11 CDT by Avel Ram [email or web address] <ELECTRONICALLY SIGNED> By: Avel Ram MD, [facility] 04/08/17 1129 1502 1502 Avel Ram MD, [facility] /EPI
--- NOTE | ~2017-04-07 | H ---
[facility] [place] [address] HISTORY AND PHYSICAL Name: VIOLETA PALM Room #: 539-P [facility] IN M.R.#: [id number] Admission: 04/07/17 Attend Phys: Angel Cordoba MD Discharge: 04/08/17 Date of : 34 Report #: [id number] THIS REPORT FOR: //name// CC: Guilherme Cordoba DATE OF SERVICE: 04/07/2017 The patient is admitted to the hospital on 04/07/2017. CHIEF COMPLAINT: Nausea and vomiting. HISTORY OF PRESENT ILLNESS: The patient is an 81-year-old female with multiple medical problems, who came to the hospital from the residential with abdominal pain, nausea and vomiting. The patient states that symptoms started yesterday, after she had pork chops. The patient worsened this morning, so she came to the Emergency Room. The patient is well known by GI service from her previous lower gastrointestinal bleed, after polypectomy. The patient states that she also has esophagitis. CT scan of the abdomen showed hiatal hernia, and nonspecific esophageal thickening. The patient has been hemodynamically stable and afebrile. She feels much better after she was treated in the Emergency Room. PAST MEDICAL HISTORY: 1. Coronary artery disease. 2. Diabetes mellitus type 2. 3. History of lower GI bleed, post polyp removal earlier this year, off anticoagulation. 4. Macular degeneration. 5. History of TIAs. 6. Sleep apnea, on CPAP. 7. Arthritis, status post bilateral hip replacement surgery. 8. Macular degeneration. 9. Left radial artery clot. 10. History of brain aneurysm, no details specified. 11. Paroxysmal atrial fibrillation. 12. Peripheral neuropathy. 13. Diabetes mellitus type 2. 14. Right basilic superficial thrombophlebitis. 15. Pulmonary hypertension, normal left ventricular ejection fraction. HOME MEDICATIONS: Long list reviewed and documented in the patient's chart. FAMILY HISTORY: Reviewed and not pertinent to the patient's current condition. [facility] [address] [place] [address] HISTORY AND PHYSICAL Name: VIOLETA PALM Room #: 539-P [facility] IN ..#: [id number] Admission: 04/07/17 Attend Phys: Angel Cordoba MD Discharge: 04/08/17 Date of : 34 Report #: [id number] SOCIAL HISTORY: The patient currently resides at the residential. She does not smoke cigarettes and does not drink alcohol. REVIEW OF SYSTEMS: As above in HPI section, all others negative. PHYSICAL EXAMINATION: GENERAL: The patient is an elderly female who is in no apparent distress. She is alert and oriented x 3. HEENT: Pupils are equal. Eye movements are normal. The patient has no exophthalmos. NECK: Supple. The patient has no thyromegaly. Oral mucosa is moist. RESPIRATORY: Chest moves symmetrically with breathing. Lungs are clear to auscultation bilaterally. CARDIOVASCULAR: The patient has regular rhythm and rate. She has no murmurs, gallops or rubs. GASTROINTESTINAL: Abdomen is soft, nondistended and nontender. Bowel sounds are normal. The patient has no hepatomegaly or splenomegaly. MUSCULOSKELETAL: There is no edema, cyanosis or clubbing. Range of motion is normal. SKIN: Skin is dry and warm. The patient has no acute skin lesions. LABORATORY DATA: Basic metabolic profile is essentially normal. Calcium is 10.5. Alkaline phosphatase slightly high at 144. On CBC, white count is 13.0. Hemoglobin and hematocrit as well as platelets are normal. CT scan of the abdomen shows no acute findings. The patient has hiatal hernia. ASSESSMENT AND PLAN: 1. Acute onset of nausea, vomiting and abdominal pain, yesterday. The patient is already seen and evaluated by GI specialist. Esophagitis is one of the considerations. Lipase is normal. The patient is refusing EGD because she had bleeding after colon polyp removal a few months ago. She wants conservative management. The patient will be treated PPI. Barium swallowing study is also an option. GI consultation is very much appreciated. 2. Paroxysmal atrial fibrillation. Currently stable. The patient is on sotalol, that will be continued. 3. Accelerated hypertension. Home medications will be resumed. Hydralazine p.r.n. for systolic blood pressure greater than 160. 4. Diabetes mellitus type 2. The patient is on Lantus at home 22 units at night. This will be renewed. She is also on Humalog 12 units before meal. We will hold these, as the patient's p.o. intake has diminished, and we will treat the patient with sliding scale insulin only. 5. Deep venous thrombosis prophylaxis. SCDs, and we will avoid anticoagulation [address] [address] HISTORY AND PHYSICAL Name: VIOLETA PALM Room #: 539-P [facility] IN MAlla.#: [id number] Admission: 04/07/17 Attend Phys: Angel Cordoba MD Discharge: 04/08/17 Date of : 34 Report #: [id number] given the patient's gastrointestinal bleed a few months ago. 6. Weakness and debility. Physical and occupational therapy. <ELECTRONICALLY SIGNED> By: Angel Cordoba MD 04/16/17 1733 1936 195 Angel Cordoba MD /nt
[2017-04-07 11:18] VITALS: BP 196/105
[2017-04-07 12:22] LABS: HEMATOCRIT 41.6 % (37.0-47.0); HEMOGLOBIN 13.5 gm/dL (12.0-15.0); MCH 26.2 pg (26.0-34.0); MCHC 32.5 g/dL (28.0-37.0); MCV 80.5 fL (80.0-100.0); PLATELET COUNT 194 thou/uL (150-400); RBC 5.17 mil/uL (4.20-5.00); RDW 23.4 % (10.5-14.5)
[2017-04-07 12:24] LABS: MANUAL DIFF YES
[2017-04-07 12:30] LABS: ANION GAP 8 mmol/L (7-16); BUN 44 mg/dL (7-18); CALCIUM 10.5 mg/dL (8.5-10.1); CHLORIDE 103 mmol/L (98-107); CO2 30 mmol/L (21-32); CREATININE 1.2 mg/dL (0.6-1.0); GLUCOSE 198 mg/dL (74-106); POTASSIUM 3.8 mmol/L (3.5-5.1); SODIUM 141 mmol/L (136-145)
[2017-04-07 12:37] LABS: ALBUMIN 3.8 g/dL (3.4-5.0); ALKALINE PHOSPHATASE 144 U/L (46-116); SGOT 26 U/L (15-37); SGPT 25 U/L (30-65); TOTAL BILIRUBIN 0.6 mg/dL (<0.1-1.0); TOTAL PROTEIN 7.7 g/dL (6.4-8.2); TROPONIN-I < 0.04 ng/mL (<0.04-0.07)
[2017-04-07 12:57] LABS: URINE BILIRUBIN NEGATIVE (Negative); URINE BLOOD NEGATIVE (Negative); URINE COLOR YELLOW; URINE GLUCOSE-RANDOM* NEGATIVE (Negative); URINE KETONES NEGATIVE (Negative); URINE LEUKOCYTES-REFLEX NEGATIVE (Negative); URINE PROTEIN (DIPSTICK) TRACE (Negative); URINE UROBILINOGEN 0.2 E.U./dl (0.2-1.0)
[2017-04-07 13:11] LABS: ABSOLUTE NEUTROPHILS 10.3 thou/uL (1.4-8.2); TOTAL CELL COUNT 100
[2017-04-07 13:12] LABS: ANISOCYTOSIS 3+; MICROCYTES 1+
[2017-04-07 13:13] LABS: POLYCHROMASIA SLIGHT
[2017-04-07 17:18] VITALS: BP 184/86
[2017-04-07 20:50] VITALS: BP 155/67
[2017-04-08 05:15] VITALS: BP 125/64
[2017-04-08 05:27] LABS: ABSOLUTE NEUTROPHILS 7.3 thou/uL (1.4-8.2); BASOPHILS 1.1 % (0.0-2.0); EOSINOPHILS 4.2 % (0.0-3.0); HEMATOCRIT 41.9 % (37.0-47.0); HEMOGLOBIN 12.9 gm/dL (12.0-15.0); LYMPHOCYTES 24.9 % (24.0-44.0); MCH 25.7 pg (26.0-34.0); MCHC 30.9 g/dL (28.0-37.0); MCV 83.2 fL (80.0-100.0); MONOCYTES 9.9 % (1.0-8.0); PLATELET COUNT 186 thou/uL (150-400); POLYS 59.9 % (36.0-66.0); RBC 5.03 mil/uL (4.20-5.00); RDW 24.1 % (10.5-14.5); WBC 12.2 thou/uL (4.0-11.0)
[2017-04-08 05:28] LABS: MANUAL DIFF NO
[2017-04-08 05:37] LABS: CALCIUM 9.7 mg/dL (8.5-10.1); CREATININE 1.2 mg/dL (0.6-1.0); POTASSIUM 4.2 mmol/L (3.5-5.1)
[2017-04-08 07:59] LABS: ANISOCYTOSIS 1+
[2017-04-08 08:00] LABS: OTHER MORPHOLOGY ROULEAUX
[2017-04-08 08:30] VITALS: BP 149/61
[2017-04-08 15:18] VITALS: BP 149/61
[2017-04-08 16:00] VITALS: BP 143/111
[2017-04-08] MEDS ORDERED: ZOFRAN ODT4 MG PO (16:08)
== END 2017-04-08 16:39 | disposition home or self-care (01) | DRG 392 ==
LOC: ER 11:06 → EROBS 16:11 → 5S 17:20
PROVIDERS: Internal Medicine Endocrinology, Diabetes & Metabolism; Physician Assistant
DX: K52.9 Noninfective gastroenteritis and colitis, unspecified (principal); I13.0 Hypertensive heart and chronic kidney disease with heart failure and stage 1 through stage 4 chronic kidney disease, or unspecified chronic kidney disease; J44.9 Chronic obstructive pulmonary disease, unspecified; E11.40 Type 2 diabetes mellitus with diabetic neuropathy, unspecified; I25.10 Atherosclerotic heart disease of native coronary artery without angina pectoris; N18.9 Chronic kidney disease, unspecified; I50.9 Heart failure, unspecified; E66.9 Obesity, unspecified; H35.30 Unspecified macular degeneration; M81.0 Age-related osteoporosis without current pathological fracture; Z96.643 Presence of artificial hip joint, bilateral; M19.90 Unspecified osteoarthritis, unspecified site; I48.0 Paroxysmal atrial fibrillation; I27.2 Other secondary pulmonary hypertension; I25.2 Old myocardial infarction; Z68.35 Body mass index [BMI] 35.0-35.9, adult; Z86.73 Personal history of transient ischemic attack (TIA), and cerebral infarction without residual deficits; Z79.4 Long term (current) use of insulin; Z79.899 Other long term (current) drug therapy; Z87.891 Personal history of nicotine dependence; Z95.5 Presence of coronary angioplasty implant and graft; Z90.710 Acquired absence of both cervix and uterus; Z88.1 Allergy status to other antibiotic agents; Z88.8 Allergy status to other drugs, medicaments and biological substances
CPT/HCPCS: 10785

== ENCOUNTER 2018-01-05 14:59 | Emergency (ER) | payer OTHER, BC ==
[~2018-01-05] VITALS: Ht 152.4 cm; Wt 74.4 kg
--- NOTE | ~2018-01-05 | EKG ---
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: NATI : 1935 Requested By: Radha Mejias Order Number: [id number] MD: Avel Ram Measurements Intervals [place] Rate: 54 P: -27 MS: 208 QRS: 15 QRSD: 92 T: 74 QT: 511 QTc: 485 Interpretive Statements Sinus bradycardia Inferior infarct, old Compared to ECG 06/25/2017 10:01:03 First degree AV block no longer present Right bundle-branch block no longer present Electronically Signed On 01-07-2018 15:19:51 MERCHANDISING PROFESSOR by Avel Ram [email or web address] <ELECTRONICALLY SIGNED> By: Avel Ram MD, [facility] 01/07/18 1519 29 29 Avel Ram MD, FAC /EPI
[~2018-01-05 14:59] MED LIST changes: +ASPIR 8181 MG PO; +ATHLETE'S FOOT28 GM TP; +AZO CRANBERRY1 EAC1 PO; +CORICIDIN COLD1 EACH PO; +DELTASONE20 MG PO; +FLEET ENEMA118 ML RC; +HUMALOG100 UNIT/2 SQ; +MILK OF MA2400 MG/10 PO; +OMEGA-31000 M1 PO; +PROAIR HFA8.5 GM INH; +ZOFRAN ODT4 MG PO; +[UNRECOGNIZED DRUG - OTHER] TOP
[2018-01-05 15:50] LABS: ABSOLUTE NEUTROPHILS 7.7 thou/uL (1.4-8.2); EOSINOPHILS 2.7 % (0.0-3.0); HEMATOCRIT 42.2 % (37.0-47.0); HEMOGLOBIN 13.9 gm/dL (12.0-15.0); LYMPHOCYTES 15.9 % (24.0-44.0); MCH 29.3 pg (26.0-34.0); MCHC 32.9 g/dL (28.0-37.0); MONOCYTES 4.6 % (1.0-8.0); PLATELET COUNT 191 thou/uL (150-400); POLYS 75.8 % (36.0-66.0); RBC 4.74 mil/uL (4.20-5.00); RDW 21.5 % (10.5-14.5); WBC 10.2 thou/uL (4.0-11.0)
[2018-01-05 16:09] LABS: ANION GAP 4 mmol/L (7-16); BUN 60 mg/dL (7-18); CALCIUM 10.2 mg/dL (8.5-10.1); CHLORIDE 99 mmol/L (98-107); CO2 33 mmol/L (21-32); CREATININE 1.7 mg/dL (0.6-1.0); GLUCOSE 216 mg/dL (74-106); POTASSIUM 4.9 mmol/L (3.5-5.1); SODIUM 136 mmol/L (136-145)
[2018-01-05 16:14] LABS: ALBUMIN 3.9 g/dL (3.4-5.0); MAGNESIUM 2.3 mg/dL (1.8-2.4); SGOT 30 U/L (15-37); SGPT 37 U/L (30-65); TOTAL BILIRUBIN 0.4 mg/dL (<0.1-1.0); TOTAL PROTEIN 7.6 g/dL (6.4-8.2); TROPONIN-I < 0.04 ng/mL (<0.06)
[2018-01-05 17:29] VITALS: BP 151/78
== END 2018-01-05 17:30 | disposition home or self-care (01) ==
LOC: ER 14:59
PROVIDERS: Nurse Practitioner Family
DX: R79.9 Abnormal finding of blood chemistry, unspecified (principal); I13.0 Hypertensive heart and chronic kidney disease with heart failure and stage 1 through stage 4 chronic kidney disease, or unspecified chronic kidney disease; I50.9 Heart failure, unspecified; N18.9 Chronic kidney disease, unspecified; E11.22 Type 2 diabetes mellitus with diabetic chronic kidney disease; J44.9 Chronic obstructive pulmonary disease, unspecified; Z88.1 Allergy status to other antibiotic agents; Z88.6 Allergy status to analgesic agent; Z87.891 Personal history of nicotine dependence

== ENCOUNTER 2018-01-27 11:04 | Inpatient (IN) | payer OTHER, BC ==
[~2018-01-27] VITALS: Ht 152.4 cm; Wt 93.1 kg
--- NOTE | ~2018-01-27 | S ---
[facility] [place] [address] [place] [address] SURGICAL PATH RPT PROCEDURE Name: VIOLETA PALM Room #: 217-P DIS IN M.R.#: [id number] Admission: 01/27/18 Date of : 34 Discharge: 02/06/18 Report #: [id number] Path Case #: [id number] PATHOLOGY REPORT COLLECTION DATE: 02/06/2018 RECEIVED DATE: 02/06/2018 SUBMITTING PHYS: Jamaal Corona M.D. OTHER PHYS: SPECIMEN(S) RECEIVED: A.Gastritis * * * * * * * * * * * * FINAL DIAGNOSIS: "Gastritis", biopsy: - Gastric mucosa with mild reactive changes and mild acute and chronic inflammation with focal active gastritis. - Negative H. pylori immunohistochemical stain (block A1); control reacted appropriately. (CLW:ila; 02/07/2018) PATHOLOGIST: Sheri Szymanski M.D. REPORT ELECTRONICALLY SIGNED BY: Sheri Szymanski M.D. DATE/TIME: 02/07/2018 14:56 * * * * * * * * * * * * GROSS PATHOLOGY: Received in formalin labeled "Violeta Palm, BX of gastritis," are 2 segments of lim soft tissue measuring 0.8 x 0.4 x 0.4 cm in aggregate dimensions and ranging from 0.4 to 0.5 cm in maximum dimension. The specimen is submitted entirely in cassette A1. (TSD; 02/06/2018) CLINICAL HISTORY: Pre-OP DX: Abdominal pain Post-BX: Gastritis INITIAL CPT CODE(S): A; 49709, 08973 Professional services performed by [facility] at [facility] [address], [place] [address] Technical services performed by [facility] at [address] [place] [address]. [facility] [address] [place] [address] SURGICAL PATH RPT PROCEDURE Name: VIOLETA PALM Room #: 217-P DIS IN M.R.#: [id number] Admission: 01/27/18 Date of : 34 Discharge: 02/06/18 Report #: [id number] Path Case #: [id number] FAX: She Holliday MD [facility] [address] [address] PHONE: [phone] DIRECTOR: Juan Reyna M.D. * * * END OF REPORT * * *
--- NOTE | ~2018-01-27 | EKG ---
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 : 1935 Requested By: Gavin Alexis Order Number: [id number] MD: Avel Ram Measurements Intervals [place] Rate: 78 P: 73 AR: 206 QRS: 85 QRSD: 154 T: -68 QT: 449 QTc: 512 Interpretive Statements Sinus rhythm Multiple premature complexes, vent & supraven Right bundle branch block Inferior infarct, age indeterminate Possible anteroseptal infarct, age indeterminate Compared to ECG 01/05/2018 16:30:42 no significant change was found Electronically Signed On 01-31-2018 8:17:25 CDT by Avel Ram [email or web address] <ELECTRONICALLY SIGNED> By: Avel Ram MD, [facility] 01/31/18 0817 0616 5 Avel Ram MD, [facility] /EPI
--- NOTE | ~2018-01-27 | HC ---
[facility] [place] [address] CONSULTATION Name: VIOLETA PALM Room #: 217-P [facility] IN M.R.#: [id number] Admission: 01/27/18 Attend Phys: Jamaal Corona MD Discharge: 02/06/18 Date of : 34 Report #: [id number] THIS REPORT FOR: //name// CC: Jamaal Corona She [place] ADDENDUM PHYSICAL EXAMINATION: VITAL SIGNS: Temperature 98.8, pulse 104, BP 186/78. GENERAL: Weak, moderate distress, awakens, on BiPAP. LUNGS: Coarse bilaterally. HEART: Tachy. ABDOMEN: Bowel sounds present. Distended. EXTREMITIES: Shows positive edema. Moved all. By: 1854 2306 Justen Hermosillo MD /nt
--- NOTE | ~2018-01-27 | HC ---
[facility] [place] [address] CONSULTATION Name: VIOLETA PALM Room #: 238-P ADM IN M.R.#: [id number] Admission: 01/27/18 Attend Phys: Jamaal Corona MD Discharge: Date of : 34 Report #: [id number] THIS REPORT FOR: //name// CC: Jamaal Holliday DATE OF SERVICE: 01/29/2018 CHIEF COMPLAINT: Ulceration to the left foot with cellulitis. HISTORY OF PRESENT ILLNESS: This is an 82-year-old female patient who was admitted after being found at home by the family weak and lying in bed. She had had chills, they noted swelling and redness involving her right foot and lower leg. I have been asked to see her with regard to wound care. The patient can provide no information about herself. There are family members present in the room who states that she was awake and alert and even ambulatory 48 hours ago. ALLERGIES: The patient's current allergies include IBUPROFEN, CLINDAMYCIN AND PROMETHAZINE. MEDICATIONS: Include multivitamin, AccuNeb, Symbicort, ProAir, Aldactone, Neurontin, clonidine, vitamin C, vitamin D, Nitrostat, prednisone, aspirin, insulin, tolnaftate, Zyloprim. PAST MEDICAL HISTORY: Positive for diabetes mellitus, chronic kidney disease, congestive heart failure, atrial fibrillation, peripheral neuropathy, previous TIA, sleep apnea requiring CPAP, previous hysterectomy. SOCIAL HISTORY: Negative for alcohol or tobacco use. FAMILY HISTORY: Noncontributory. REVIEW OF SYSTEMS: Unable to be obtained due to the patient's decreased level of consciousness. She does not answer questions or make eye contact. PHYSICAL EXAMINATION: VITAL SIGNS: At this time include temperature 98.7, pulse 118, respiratory rate of 19, blood pressure 167/85. GENERAL: This is a chronically ill-appearing female patient appears to be in mild discomfort. HEENT: Head normocephalic. Nose and throat are clear. NECK: Supple. LUNGS: Clear. HEART: Diminished. ABDOMEN: Soft, somewhat distended, nontender. EXTREMITIES: Demonstrate diminished yet palpable distal pulses. She has an [facility] [address] [place] [address] CONSULTATION Name: VIOLETA PALM Room #: 238-P ADM IN M.R.#: [id number] Admission: 01/27/18 Attend Phys: Jamaal Corona MD Discharge: Date of : 34 Report #: [id number] ulceration at the plantar aspect of the right fifth MTP. She has significant cellulitis of the foot and lower leg. NEUROLOGIC: The patient does have a symmetrical neuro exam. She does not follow commands, however. LABORATORY DATA: Includes sodium 139, potassium 4.7, chloride 105, CO2 of 25, BUN 52, creatinine 1.8, glucose 136, total protein 6.7, albumin 3.3. CLINICAL IMPRESSION: 1. Ulceration of the left foot. 2. Cellulitis, left lower extremity. 3. Sepsis picture. 4. Type 2 diabetes mellitus with peripheral neuropathy. 5. History of congestive heart failure. 6. History of chronic obstructive pulmonary disease and sleep apnea. RECOMMENDATIONS: At this point in time, we will recommend topical Bactroban to the open ulceration on the plantar aspect of the foot. We will recommend moisturizer to the lower extremity in single layer Tubigrip for mild compression. Recommend elevation of the extremity. She will need nutritional support. Cultures are pending. Antibiotic therapy would be appropriate at this time and recommend continuing on current medications. All questions have been answered with family at the bedside. I appreciate being asked to see her in consultation. <ELECTRONICALLY SIGNED> By: Víctor Espino MD 01/30/18 1051 2034 2218 Víctor Espino MD /nt
--- NOTE | ~2018-01-27 | P ---
[facility] [place] [address] PROCEDURE REPORT Name: VIOLETA PALM Room #: 217-P [facility] IN M.R.#: [id number] Admission: 01/27/18 Attend Phys: Jamaal Corona MD Discharge: 02/06/18 Date of : 34 Report #: [id number] THIS REPORT FOR: //name// CC: Jamaal Rea MD [facility] She Holliday DATE OF SERVICE: 02/06/2018 PROCEDURE PERFORMED: Upper endoscopy with biopsies. HISTORY OF PRESENT ILLNESS: The patient is an 82-year-old female with a history of abdominal pain, nausea, who was noted to have an elevated lipase. A CT scan of her abdomen and pelvis shows a normal pancreas. She does have a distended gallbladder. She has a mild elevation in her liver function test. Last few days, has been denying any further abdominal pain, although today, she reports some mild pain. She has been tolerating regular diet. She was also admitted with bacteremia and cellulitis as well as aspiration. Plan is for EGD today. DESCRIPTION OF PROCEDURE: The risks and benefits of the procedure were explained to the patient and her family, those risks including but not limited to bleeding, perforation, the risk of sedation. She understood these risks and gave informed consent. Sedation was given using propofol and ketamine per anesthesia. Next, using a standard Olympus upper endoscope, the scope was placed in the patient's mouth and advanced under direct vision through the esophagus, stomach and into the second portion of the duodenum. The esophagus was normal throughout. The GE junction was normal. Overall, the gastric mucosa was normal. In the fundus; however, in the body and antrum, there were a mild diffuse gastritis. Biopsies were obtained to rule out H. pylori. There was no evidence of ulcerations or bleeding. The pylorus was normal and patent. The duodenal bulb, first and second portion were all normal. The scope was then withdrawn and the procedure terminated. The patient tolerated the procedure well. IMPRESSION: 1. Gastritis. 2. Otherwise, normal upper endoscopy. RECOMMENDATIONS: 1. Await biopsy results. 2. Would recommend continuing daily PPI therapy. 3. Continue to monitor lipase, unclear if the patient has true pancreatitis as she does have an elevated lipase, but pancreas was normal and she is without abdominal pain in the last few days. She does have a mild elevation in her [facility] [address] [place] [address] PROCEDURE REPORT Name: VIOLETA PALM Room #: 217-P DIS IN M.R.#: [id number] Admission: 01/27/18 Attend Phys: Jamaal Corona MD Discharge: 02/06/18 Date of : 34 Report #: [id number] liver function tests, which could be monitored as well. Thank you for allowing me to participate in her care. <ELECTRONICALLY SIGNED> By: David Mohan MD 02/16/18 0804 1529 1546 David Mohan MD /alejandro
--- NOTE | ~2018-01-27 | 2DMMODE ---
[facility] [address] [place] [address] 2 D/M-MODE ECHOCARDIOGRAM Name: VIOLETA PALM Room #: 238-P ADM IN M.R.#: [id number] Admission: 01/27/18 Attend Phys: Jamaal Corona MD Discharge: Date of : 34 Date of Service: 01/30/18 1127 Report #: [id number] THIS REPORT FOR: //name// APPROVED REPORT Study performed: 01/30/2018 08:41:10 EXAM: Comprehensive 2D, Doppler, and color-flow Echocardiogram Patient Location: ICU Room #: 238 Status: routine BSA: 1.77 HR: 88 bpm BP: 187/86 mmHg Other Information Study Quality: Adequate Indications COPD Diabetes CAD Bacteremia 2D Dimensions RVDd: 36.19 mm LVEF(%): 66.04 (>50%) IVSd: 11.41 (7-11mm) LVOT Diam: 18.51 (18-24mm) LVDd: 54.26 mm PWd: 11.23 (7-11mm) Ascending Ao: 24.58 (22-36mm) LVDs: 34.32 (25-40mm) Aortic Root: 26.25 mm IVC: 28.00 mm Redmond's LVEF: 66.04 % Volumes Left Atrial Volume (Systole) Single Plane 4CH: 83.88 mL Single Plane 2CH: 78.06 mL LA ESV Index: 50.00 mL/m2 Aortic Valve AoV Peak Kris.: 2.24 m/s AO Peak Gr.: 20.15 mmHg LVOT Max P.77 mmHg AO Mean Gr.: 12.13 mmHg LVOT Mean P.02 mmHg AO V2 Mean: 1.66 m/s LVOT Max V: 1.20 m/s AO V2 VTI: 41.40 cm LVOT Mean V: 0.78 m/s DANIELLA (VTI): 1.86 cm2 LVOT V1 VTI: 28.58 cm [facility] [place] [address] 2 D/M-MODE ECHOCARDIOGRAM Name: VIOLETA PALM Room #: 238-P ADM IN M.R.#: [id number] Admission: 01/27/18 Attend Phys: Jamaal Corona MD Discharge: Date of : 34 Date of Service: 01/30/18 1127 Report #: [id number] DANIELLA Vmax: 1.44 cm2 SV (LVOT): 76.87 mL Mitral Valve E/A Ratio: 0.9 MV Decel. Time: 335.89 ms MV E Max Kris.: 1.07 m/s MV A Kris.: 1.14 m/s MV PHT: 97.41 ms IVRT: 106.11 ms Pulmonary Valve PV Peak Kris.: 0.94 m/s PV Peak Gr.: 3.56 mmHg Pulmonary Vein P Vein S: 0.26 m/s P Vein A: 0.38 m/s P Vein D: 0.13 m/s P Vein A Dur.: 115.3 msec P Vein S/D Ratio: 2.00 Tricuspid Valve TR Peak Kris.: 3.25 m/s TR Peak Gr.: 42.20 mmHg PA Pressure: 57.00 mmHg Left Ventricle The left ventricle is normal size. Mild concentric left ventricular hypertrophy. The left ventricular systolic function is normal. The left ventricular ejection fraction is within the normal range. LVEF is 60-65%. Grade I - abnormal relaxation pattern. Right Ventricle The right ventricle is normal size. The right ventricular systolic function is normal. Atria Left atrium is moderately dilated. Right atrium is dilated. Aortic Valve Aortic valve is calcified. Mild aortic regurgitation. Mild aortic stenosis. Mitral Valve The mitral valve is normal in structure. There is mitral annular calcification. Mild mitral regurgitation. No evidence of mitral valve stenosis. [facility] [address] [place] [address] 2 D/M-MODE ECHOCARDIOGRAM Name: VIOLETA PALM Room #: 238-P ADM IN M.R.#: [id number] Admission: 01/27/18 Attend Phys: Jamaal Corona MD Discharge: Date of : 34 Date of Service: 01/30/18 1127 Report #: [id number] Tricuspid Valve The tricuspid valve is normal in structure. There is mild tricuspid regurgitation. Estimated PAP 57 mmHg. There is moderate pulmonary hypertension. Pulmonic Valve Pulmonic valve is not well visualized. There is no pulmonic valvular regurgitation. Great Vessels The aortic root is normal in size. The inferior vena cava is dilated with no inspiratory collapse. Pericardium There is no pericardial effusion. <Conclusion> Mild concentric left ventricular hypertrophy. LVEF is 60-65%. Left atrium is moderately dilated. Mild aortic stenosis. Mild mitral regurgitation. There is mild tricuspid regurgitation. Estimated PAP 57 mmHg. There is moderate pulmonary hypertension. <ELECTRONICALLY SIGNED> By: Gavin Alexis MD, FACC 01/30/18 1127 1127 1127 Gavin Alexis MD, FACC /INF
--- NOTE | ~2018-01-27 | EKG ---
[address] [place] [address] ELECTROCARDIOGRAM REPORT Name: VIOLETA PALM Room #: 217-P ADM IN M.R.#: [id number] Admission: 01/27/18 Attend Phys: Jamaal Corona MD Discharge: Date of : 34 Report #: [id number] THIS REPORT FOR: //name// [facility] Test Date: 2018-02-01 Test Time: 07:05:20 Pat Name: VIOLETA PALM Department: Room: 217 Gender: F Traffic Expert: ZORAN : 1935 Requested By: Gavin Alexis Order Number: [id number] MD: Juan Jose Bradshaw Measurements Intervals [place] Rate: 105 P: NV: QRS: -97 QRSD: 149 T: 77 QT: 419 QTc: 554 Interpretive Statements Sinus with RIGHT BUNDLE BRANCH BLOCK and bigeminal pvc Electronically Signed On 02-04-2018 21:50:10 CDT by Juan Jose Bradshaw [email or web address] <ELECTRONICALLY SIGNED> By: Juan Jose Bradshaw MD 02/04/18 2150 0705 0705 Juan Jose Bradshaw MD /WINDY
--- NOTE | ~2018-01-27 | HC ---
[facility] [place] [address] CONSULTATION Name: VIOLETA PALM Room #: 238-P ADM IN M.R.#: [id number] Admission: 01/27/18 Attend Phys: Jamaal Corona MD Discharge: Date of : 34 Report #: [id number] THIS REPORT FOR: //name// CC: Jamaal Holliday DATE OF SERVICE: 01/29/2018 HISTORY OF PRESENT ILLNESS: The patient is an 82-year-old single white female who I was asked to see in the hospital today because of her history of coronary artery disease. The patient has an extensive past medical history. She has had multiple hospitalizations here at [facility]. She had a stent placement in LAD in 2007. Repeat heart catheterization in 2008 showed no restenosis stent. She has a history of paroxysmal atrial fibrillation. She previously was on Pradaxa, but it was discontinued after she is found to have evidence of an intracranial aneurysm. She is not very active because of arthritis and is primarily wheelchair bound. She lives in assisted living. She has a previous history of GI bleeding felt to be secondary to colon polyp. She has also had previous evidence of an embolic event to her eye. However, the patient was not felt to be a candidate for anticoagulation. The patient was admitted to [facility] 2 days ago. She was brought by ambulance with evidence of hypoxia. She is noted to have cellulitis of the left leg. She currently lives at home with family members. She became confused. She was noted to be hypertensive. She does wear CPAP at nighttime. The patient was admitted to [facility] with cellulitis. She has been seen by multiple consultants since her admission 2 days ago. Because of increased confusion, the patient was admitted to the ICU. The patient was noted to have acute renal insufficiency with hyperkalemia. The patient developed atrial fibrillation. I was asked to see her. There has been no recent complaint of chest pain. PAST MEDICAL HISTORY: Otherwise significant for previous cataract surgery, hip replacement, bladder surgery. She has sleep apnea, spinal stenosis, rotator cuff tear, hypertension, hyperlipidemia. She has had a previous history of atrial fibrillation. She has sleep apnea, chronic kidney disease, intracranial aneurysm, previous hemorrhage in her eye. HOME MEDICATIONS: Consists of sotalol, torsemide, omeprazole, spironolactone, clonidine, allopurinol. ALLERGIES: SHE HAS PREVIOUS INTOLERANCE TO CLINDAMYCIN. FAMILY HISTORY: Her father had a heart attack. SOCIAL HISTORY: She is , lives with family members. She has not smoked for years. No alcohol issues. [address] [address] CONSULTATION Name: VIOLETA PALM Room #: 238-P [facility] IN M.R.#: [id number] Admission: 01/27/18 Attend Phys: Jamaal Corona MD Discharge: Date of : 34 Report #: [id number] REVIEW OF SYSTEMS: There is no history of asthma, peptic ulcer disease, liver disease, cancer. She has arthritis, no chronic infectious condition. No psychiatric illness. PHYSICAL EXAMINATION: GENERAL: Revealed an elderly female lying in bed. She was arousable. VITAL SIGNS: Revealed blood pressure 140/40, pulse is 100. She is afebrile. HEENT: Mucous members are moist. CHEST: Revealed decreased breath sounds at bases. CARDIAC: Irregular rhythm. ABDOMEN: Obese. EXTREMITIES: Had trace edema. SKIN: Cool and dry. NEUROLOGIC: She was arousable. DIAGNOSTIC WORKUP: She had an echocardiogram a year ago that showed ejection fraction 60% with jkiyvlkh-ho-zghumt pulmonary hypertension. X-rays since her admission, she had a portable chest x-ray on admission that showed cardiomegaly, clear lung langston. LABORATORY DATA: Sodium 139, potassium 4.7. Her creatinine is 1.8, which is minimally elevated from the past. Her troponin 0.04, BNP 10,951. White blood cell count 16.1, hemoglobin 11.2. Her ECG on admission showed a sinus rhythm. She currently appears to be in atrial fibrillation. IMPRESSION AND RECOMMENDATIONS: 1. Atrial fibrillation. I would not recommend attempts at cardioversion. The patient has a previous history of atrial fibrillation. At this time, I would aim for rate control only. The patient is not a good candidate for anticoagulation because of her history of intraocular bleeding and intracranial aneurysm. 2. Cellulitis. 3. Confusion. 4. Diabetes. 5. History of hypertension. 6. History of coronary artery disease. 7. History of gastrointestinal bleeding. 8. Sleep apnea. <ELECTRONICALLY SIGNED> By: Gavin Alexis MD, FACC 01/30/18 1142 1823 09 Gavin Alexis MD, FACC /nt
--- NOTE | ~2018-01-27 | EKG ---
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 02/05/18 0831 0629 0629 Avel Ram MD, [facility] /EPI
--- NOTE | ~2018-01-27 | EKG ---
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 : 1935 Requested By: Gavin Alexis Order Number: [id number] MD: Measurements Intervals [place] Rate: 97 P: 24 [place]: 192 QRS: -96 QRSD: 144 T: 68 QT: 399 QTc: 507 Interpretive Statements Sinus rhythm Paired ventricular premature complexes Right bundle branch block Inferior infarct, old Compared to ECG 01/05/2018 16:30:42 Ventricular premature complex(es) now present Right bundle-branch block now present Sinus bradycardia no longer present Myocardial infarct finding still present [email or web address] By: 0156 0156 Epiphany Epiphany, /EPI
--- NOTE | ~2018-01-27 | HC ---
[facility] [place] [address] CONSULTATION Name: VIOLETA PALM Room #: 217-P [facility] IN M.R.#: [id number] Admission: 01/27/18 Attend Phys: Jamaal Corona MD Discharge: 02/06/18 Date of : 34 Report #: [id number] THIS REPORT FOR: //name// CC: Jamaal Holliday DATE OF SERVICE: 01/29/2018 REASON FOR CONSULTATION: Hypercapnic respiratory failure. IMPRESSION: 1. Hypercapnic respiratory failure in the face of sepsis. 2. Chronic obstructive pulmonary disease. 3. Cellulitis. 4. Acute kidney injury. 5. Group B strep bacteremia. PLAN: IV fluids per Renal. Continue BiPAP for now. We will need to follow closely. HISTORY OF PRESENT ILLNESS: An 82-year-old female. She was doing well last week, had a wound that was being checked, then developed cellulitis and decreased mental status, was doing okay over the weekend, today had worsening and is now requiring BiPAP. PAST MEDICAL HISTORY: ALLERGIES: TO IBUPROFEN, CLINDAMYCIN AND PROMETHAZINE. MEDICATIONS: Include sotalol, torsemide, omeprazole, gabapentin, aspirin and insulin. PAST SURGICAL HISTORY: Include bladder surgery, cataracts, hysterectomy, total knee and bilateral total hip. FAMILY HISTORY: Heart disease. SOCIAL HISTORY: Positive tobacco, smoked for 15 years, 1/4 pack a day. Her last FVC was 1.05, 58% predicted and FEV1 0.66, 47% predicted. REVIEW OF SYSTEMS: Atrial fibrillation, coronary artery disease, COPD, history of CVA, hyperlipidemia, hypertension and JOHN. Unable to obtain history and review of systems as is moanindeandra. She has done this in the past, however. LABORATORY DATA: A pH 7.215, pCO2 of 51, pO2 of 108, bicarbonate 20 on 60% BiPAP. BUN 52, creatinine 1.8 and calcium 8.2. White count 16, hemoglobin 11.2 [facility] [address] [place] [address] CONSULTATION Name: VIOLETA PALM Room #: 217-P [facility] IN [facility].#: [id number] Admission: 01/27/18 Attend Phys: Jamaal Corona MD Discharge: 02/06/18 Date of : 34 Report #: [id number] and platelets 105. Sed rate 95. Hemoglobin A1c 6.8. Chest x-ray today showed no acute infiltrate. ADDENDUM PHYSICAL EXAMINATION: VITAL SIGNS: Temperature 98.8, pulse 104, BP 186/78. GENERAL: Weak, moderate distress, awakens, on BiPAP. LUNGS: Coarse bilaterally. HEART: Tachy. ABDOMEN: Bowel sounds present. Distended. EXTREMITIES: Shows positive edema. Moved all. <ELECTRONICALLY SIGNED> By: Justen Hermosillo MD 05/01/18 1509 1934 0054 Justen Hermosillo MD /nt
--- NOTE | ~2018-01-27 | HC ---
[facility] [place] [address] CONSULTATION Name: VIOLETA PALM Room #: 238-P ADM IN M.R.#: [id number] Admission: 01/27/18 Attend Phys: Jamaal Corona MD Discharge: Date of : 34 Report #: [id number] THIS REPORT FOR: //name// CC: Jamaal Holliday REASON FOR CONSULTATION: Elevated creatinine. REASON FOR PRESENTATION: Weakness and fever. HISTORY OF PRESENT ILLNESS: This is an 82-year-old who was found by her family members lying in bed. They reported fever. She lives alone and the family checks on her every once in a while. They visited with her to pick her for a sister's . She was found to have right lower extremity cellulitis. She was recently evaluated by her manager resort and they did some incision and drainage of a wound on the left lateral aspect of her foot. She has extensive past medical history including and not limited to chronic kidney disease, COPD, AFib, debility, coronary artery disease, diabetes mellitus, status post CVA. She sees Dr. Dominguez in my clinic. Creatinine in the past has been in the 1.5 range. Recently, it had risen up to 2.1; however, it is back to 1.8. I am being consulted to manage her chronic kidney disease. She is moaning in pain this morning and not able to provide me with the history details; however, the family is bedside and they are the ones providing me with the details of the history. ALLERGIES: IBUPROFEN, CLINDAMYCIN, PROMETHAZINE. MEDICATIONS: Sotalol, torsemide, omeprazole, gabapentin, aspirin, insulin. PAST MEDICAL HISTORY: 1. COPD. 2. AFib. 3. Chronic kidney disease. 4. Hypertension. 5. Diabetes mellitus. 6. Obesity. 7. TIA. 8. Coronary artery disease. 9. Obstructive sleep apnea. 10. Osteoporosis. 11. Hysterectomy. 12. Abdominal wall abscesses. 13. Cellulitis. 14. C. diff. FAMILY HISTORY: No family history significant for hypertension. SOCIAL HISTORY: She lives by herself, but family checks on her. [facility] [address] [place] [address] CONSULTATION Name: VIOLETA PALM Room #: 238-P [facility] IN M.R.#: [id number] Admission: 01/27/18 Attend Phys: Jamaal Corona MD Discharge: Date of : 34 Report #: [id number] REVIEW OF SYSTEMS: Per the family. GENERAL: Significant for fever and chills. CARDIOVASCULAR: Significant for shortness of breath. PULMONARY: Significant for cough. GASTROINTESTINAL: Decreased p.o. intake. GENITOURINARY: No frequency, no urgency. SKIN: As per the history of present illness. PHYSICAL EXAMINATION: VITAL SIGNS: Temperature 36.4. She did have some low blood pressure reading yesterday. Blood pressure this morning is 181/57. HEAD AND NECK: No jugular venous distention, no bruit, no thyromegaly. CHEST: Clear to auscultation. CARDIOVASCULAR: Regular, with no rub. ABDOMEN: Soft, nontender. EXTREMITIES: Lower extremity cellulitis on the left lower extremity, dressing applied over the left foot. She has multiple bruises on the right upper extremities bilaterally. LABORATORY DATA: Reviewed. Creatinine is down to 1.8. She did have leukocytosis with a white blood cell count up to 21,000. However, this is down to 16.1 today. ASSESSMENT, IMPRESSION, PLAN: 1. Cellulitis. 2. Acute kidney injury 3. Chronic kidney disease. 4. Debility. 5. Multiple comorbid conditions. 6. Group B streptococcus in her blood. 7. The patient seems to be at her baseline from the renal perspective. Continue with the IV fluid. 8. Keep holding the diuretics for now. 9. Treat her cellulitis. 10. Avoid hypotension and nephrotoxins. 11. Strict input and output. Not really sure how aggressive do we have to be with the care of this 82-year-old. We need to discuss code status with family members. ID is adjusting the antibiotic. <ELECTRONICALLY SIGNED> By: Aure Quintero MD 02/03/18 0923 0941 1148 Aure Quintero MD /nt
--- NOTE | ~2018-01-27 | HC ---
[facility] [place] [address] CONSULTATION Name: VIOLETA PALM Room #: 217-P [facility] IN M.R.#: [id number] Admission: 01/27/18 Attend Phys: Jamaal Corona MD Discharge: 02/06/18 Date of : 34 Report #: [id number] THIS REPORT FOR: //name// CC: Jamaal Holliday DATE OF SERVICE: 01/28/2018 CONSULTATION: Infectious Diseases. HISTORY OF PRESENT ILLNESS: The patient is an 82-year-old white female admitted to [facility] on 01/27/2018 complaining of overwhelming weakness. The patient was having chills, but no measured fever. Workup demonstrated diabetic foot wound with cellulitis of her leg. In this setting, Infectious Disease consultation was requested. The patient has [facility] [place], [place]. 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 PAST MEDICAL HISTORY: Significant for diabetes with hypertension and neuropathy. The patient has coronary artery disease and has had angioplasty. She has congestive heart failure and atrial fibrillation. She has had TIAs and lacunar infarcts. The patient has a diagnosis of COPD and sleep apnea. The patient has degenerative joint disease and psoriasis. She reports that she is receiving prednisone 5 mg daily for her arthritis. PAST SURGICAL HISTORY: Includes hysterectomy, bilateral knee replacements and abdominal abscess surgery. ALLERGIES: The patient has no drug allergies. MEDICATION RECONCILIATION: As follows: The patient is on zinc sulfate 220 mg daily, Silvadene to the wound, lactobacillus 1 cap t.i.d., vancomycin 500 mg q.24h., gabapentin 300 mg b.i.d., pantoprazole 40 mg p.o. daily, gabapentin 600 mg at bedtime, insulin sliding scale, Zosyn 2.25 grams every 6 hours, Tylenol 650 mg q.4h. p.r.n., Glucagon p.r.n., glucose tablets p.r.n., hydrocodone 1-2 tablets q.4h. p.r.n., Ambien 5 mg at bedtime p.r.n., MiraLax 17 grams p.o. p.r.n. constipation and Zofran 4 mg IV p.r.n. nausea. SOCIAL HISTORY: The patient is . She does not use tobacco, alcohol or drugs. Her daughter is close by and is very attentive and brought the patient to the hospital because of the finding her mother too weak to even get out of bed for her sister's . REVIEW OF SYSTEMS: [address] [address] CONSULTATION Name: VIOLETA PALM Room #: 217-P [facility] IN M.R.#: [id number] Admission: 01/27/18 Attend Phys: Jamaal Corona MD Discharge: 02/06/18 Date of : 34 Report #: [id number] GENERAL: Fevers, but not measured and chills. No rigors. Weakness and malaise. ENT: The patient denies any headache, sinus congestion, sore throat or trouble swallowing. The daughter says mental status has been normal. CHEST: The patient denies cough, chest pain or shortness of breath. GASTROINTESTINAL: The patient denies nausea or vomiting. She has constant constipation, which is baseline. GENITOURINARY: Frequency, but no dysuria. EXTREMITIES: No pain in the extremities, although the patient is fairly neuropathic. PHYSICAL EXAMINATION: GENERAL: On examination, the patient appears her stated age, somewhat cushingoid in appearance, not in any distress. VITAL SIGNS: Show maximum measured temperature of 100.4. SKIN: Shows the mal perforans ulcer on the left fifth plantar metatarsal head. The wound measures about 5 x 10 mm. I could not estimate the depth. There is a trimmed callus around the wound. There is no cellulitis around the wound. On the foreleg on the left side, the skin is red, warm and somewhat edematous. There are no breaks in the skin at this level. No venous stasis changes. The right foot has a callus on the fifth metatarsal head, which has been trimmed back, but the epithelium is intact. Pulses are diminished. The feet do demonstrate exaggerated arch and interosseous wasting. ENT EXAMINATION: Shows the cushingoid facies. The patient has a male pattern hair thinning. The mucous membranes are normal. NECK: Supple. MENTAL STATUS: Normal. HEART: Heart sounds S1, S2. Regular rate and rhythm. LUNGS: Clear. ABDOMEN: Belly is obese, soft and nontender. EXTREMITIES: As noted. LABORATORY DATA: The white count was initially 22,000 with 74% polys and 7% bands, it is down the next day to 20,000; hemoglobin 11.8 and platelet 127,000. The Electrolytes: Sodium 139, potassium 5.2, bicarbonate 24, chloride 106, BUN 58, creatinine 2.1 and glucose 107. The Gram stain from the wound shows gram-positive cocci. Cultures are pending. Influenza titer antigens are negative. Blood cultures show gram-positive cocci in 1 out of 2 sets. SUMMARY: In summary, the patient who had debridement of a diabetic foot wound down to the subcutaneous level and now has cellulitis of the affected leg. I would like to treat the wound with Silvadene and gauze. I would like to look for metabolic impediments to wound healing, such as low zinc, low thyroid, poor nutrition, heart failure and poor glycemic control. We will have the dietitian bring Jose supplements and offer zinc 220 mg p.o. daily. The blood culture may [facility] [address] [place] [address] CONSULTATION Name: VIOLETA PALM Room #: 217-P [facility] IN M.R.#: [id number] Admission: 01/27/18 Attend Phys: Jamaal Corona MD Discharge: 02/06/18 Date of : 34 Report #: [id number] be contaminant or may represent a true infection related to the cellulitis of the leg. I will continue the patient on vancomycin for the Gram-positive bacteremia and Zosyn for the diabetic foot wound. We may be able to de-escalate the antibiotics, when cultures are complete. I am concerned the patient is receiving prednisone for arthritis. She does not have any skin lesions. She does not have any signs of psoriatic arthritis. She appears cushingoid. I wonder if she is taking more than the prescribed 5 mg a day when she is feeling badly. It may be worthwhile to try to find an alternative treatment for her arthritis. We may want to do ACTH stimulation test to see if she has adrenal suppression from long-term steroid use. I appreciate the opportunity to offer inputs in the care of the patient. Dr. Bradshaw will return on Monday for additional followup. Thank you for requesting Infectious Disease input into her care. <ELECTRONICALLY SIGNED> By: Armin Luna MD 02/18/18 1819 0928 1209 Armin Luna MD /nt
--- NOTE | ~2018-01-27 | EKG ---
[address] [address] [facility] [place] [address] ELECTROCARDIOGRAM REPORT Name: VIOLETA PALM Room #: 238-P ADM IN M.R.#: [id number] Admission: 01/27/18 Attend Phys: Jamaal Corona MD Discharge: Date of : 34 Report #: [id number] THIS REPORT FOR: //name// [facility] Test Date: 2018-01-30 Test Time: 01:56:08 Pat Name: VIOLETA PALM Department: Room: 238 P Gender: F Applier: [id number] : 1935 Requested By: Gavin Alexis Order Number: [id number] MD: Avel Ram Measurements Intervals [place] Rate: 97 P: 24 [place]: 192 QRS: -96 QRSD: 144 T: 68 QT: 399 QTc: 507 Interpretive Statements Sinus rhythm Paired ventricular premature complexes Right bundle branch block Inferior infarct, old Compared to ECG 01/05/2018 16:30:42 Ventricular premature complex(es) now present Sinus bradycardia no longer present Electronically Signed On 01-31-2018 8:03:31 CDT by Avel Ram [email or web address] <ELECTRONICALLY SIGNED> By: Avel Ram MD, [facility] 01/31/18 0803 0156 0156 Avel Ram MD, [facility] /EPI
--- NOTE | ~2018-01-27 | EKG ---
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 : 1935 Requested By: Gavin Alexis Order Number: [id number] MD: Avel Ram Measurements Intervals [place] Rate: 93 P: [place]: QRS: 91 QRSD: 153 T: -73 QT: 440 QTc: 548 Interpretive Statements Probable Atrial fibrillation RBBB and LPFB Inferior infarct, age indeterminate ST depr, consider ischemia, anterolateral lds Baseline wander in lead(s) V6 no previous ECGs available for comparison Electronically Signed On 02-04-2018 13:34:20 CDT by Avel Ram [email or web address] <ELECTRONICALLY SIGNED> By: Avel Ram MD, [facility] 02/04/18 1334 8 Avel Ram MD, [facility] /EPI
--- NOTE | ~2018-01-27 | EKG ---
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 : 1935 Requested By: Kathryn De La Cruz Order Number: [id number] MD: Avel Ram Measurements Intervals [place] Rate: 102 P: 43 SC: 169 QRS: -97 QRSD: 146 T: 36 QT: 394 QTc: 514 Interpretive Statements Sinus tachycardia Right bundle branch block Inferior infarct, old Compared to ECG 01/31/2018 06:16:39 Atrial premature complexes no longer present Electronically Signed On 02-04-2018 13:12:09 CDT by Aevl Ram [email or web address] <ELECTRONICALLY SIGNED> By: Avel Ram MD, [facility] 02/04/18 1312 2348 2348 Avel Ram MD, [facility] /EPI
[2018-01-27 11:06] VITALS: BP 147/60
[2018-01-27 11:43] LABS: HEMOGLOBIN 13.4 gm/dL (12.0-15.0); MCH 30.1 pg (26.0-34.0); MCHC 32.6 g/dL (28.0-37.0); MCV 92.2 fL (80.0-100.0); PLATELET COUNT 167 thou/uL (150-400); RBC 4.44 mil/uL (4.20-5.00); RDW 18.9 % (10.5-14.5); WBC 22.1 thou/uL (4.0-11.0)
[2018-01-27 11:52] LABS: CALCIUM 9.8 mg/dL (8.5-10.1); CREATININE 1.9 mg/dL (0.6-1.0); POTASSIUM 4.1 mmol/L (3.5-5.1)
[2018-01-27 11:58] LABS: ALBUMIN 3.3 g/dL (3.4-5.0); DIRECT BILIRUBIN 0.1 mg/dL (<0.1-0.3); TOTAL BILIRUBIN 0.6 mg/dL (<0.1-1.0); TOTAL PROTEIN 6.7 g/dL (6.4-8.2)
[2018-01-27 12:17] LABS: ABSOLUTE NEUTROPHILS 17.9 thou/uL (1.4-8.2)
[2018-01-27 13:20] LABS: URINE BILIRUBIN NEGATIVE (Negative); URINE BLOOD NEGATIVE (Negative); URINE CLARITY CLEAR; URINE COLOR YELLOW; URINE GLUCOSE-RANDOM* NEGATIVE (Negative); URINE KETONES NEGATIVE (Negative); URINE LEUKOCYTES-REFLEX NEGATIVE (Negative); URINE NITRITE-REFLEX NEGATIVE (Negative); URINE PROTEIN (DIPSTICK) TRACE (Negative); URINE UROBILINOGEN 0.2 E.U./dl (0.2-1.0)
[2018-01-27] MEDS ORDERED: PROBIOTIC1 EAC1 PO (13:35)
[2018-01-27] MEDS ORDERED: COLACE100 MG PO (13:36)
[2018-01-27] MEDS ORDERED: LANTUS100 UNIT/M SUBQ (13:40)
[2018-01-27 14:18] VITALS: BP 92/46
[2018-01-27 15:00] VITALS: BP 105/34
[2018-01-27 15:40] VITALS: BP 107/62
[2018-01-27 19:22] VITALS: BP 108/50
[2018-01-28 04:42] VITALS: BP 126/67
[2018-01-28 06:14] LABS: HEMATOCRIT 36.4 % (37.0-47.0); HEMOGLOBIN 11.8 gm/dL (12.0-15.0); MCH 30.4 pg (26.0-34.0); MCHC 32.3 g/dL (28.0-37.0); MCV 94.1 fL (80.0-100.0); RBC 3.87 mil/uL (4.20-5.00); RDW 18.8 % (10.5-14.5); WBC 20.4 thou/uL (4.0-11.0)
[2018-01-28 06:26] LABS: CALCIUM 8.1 mg/dL (8.5-10.1); CREATININE 2.1 mg/dL (0.6-1.0); POTASSIUM 5.2 mmol/L (3.5-5.1)
[2018-01-28 08:28] VITALS: BP 109/38
[2018-01-28 16:47] VITALS: BP 140/45
[2018-01-28 19:42] VITALS: BP 173/71
[2018-01-29] VITALS (10 sets, daily range): BP systolic 134–186; BP diastolic 38–126
[2018-01-29 07:26] LABS: ABSOLUTE NEUTROPHILS 13.5 thou/uL (1.4-8.2); BASOPHILS 0.3 % (0.0-2.0); EOSINOPHILS 0.7 % (0.0-3.0); HEMATOCRIT 34.8 % (37.0-47.0); HEMOGLOBIN 11.2 gm/dL (12.0-15.0); LYMPHOCYTES 8.3 % (24.0-44.0); MCH 30.2 pg (26.0-34.0); MCHC 32.1 g/dL (28.0-37.0); MCV 94.2 fL (80.0-100.0); MONOCYTES 6.9 % (1.0-8.0); PLATELET COUNT 105 thou/uL (150-400); POLYS 83.8 % (36.0-66.0); RBC 3.69 mil/uL (4.20-5.00); RDW 19.1 % (10.5-14.5); WBC 16.1 thou/uL (4.0-11.0)
[2018-01-29 07:32] LABS: CALCIUM 8.2 mg/dL (8.5-10.1); CREATININE 1.8 mg/dL (0.6-1.0); POTASSIUM 4.7 mmol/L (3.5-5.1)
[2018-01-29 07:34] LABS: PREALBUMIN 14.9 mg/dL (18.0-35.7)
[2018-01-29 13:24] LABS: BE(vivo) -7.4 mmol/L (-2 to +3); HCO3 20.1 mmol/L (22.0-26.0); sO2 81.6 % (92.0-98.0)
[2018-01-29 13:25] LABS: PO2 53.2 mmHg (80.0-100.0); pH 7.239 (7.360-7.450)
[2018-01-29] MEDS ORDERED: SORINE 80 MG TA80 MG PO (13:56)
[2018-01-29 16:07] LABS: GLYCOHEMOGLOBIN (HGB A1C) 6.8 % (4.8-5.6)
[2018-01-29 18:41] LABS: BE(vivo) -7.9 mmol/L (-2 to +3); HCO3 20.1 mmol/L (22.0-26.0); PCO2 50.7 mmHg (35.0-45.0); PO2 108.3 mmHg (80.0-100.0); pH 7.215 (7.360-7.450); sO2 96.9 % (92.0-98.0)
[2018-01-30] VITALS (38 sets, daily range): BP systolic 128–206; BP diastolic 63–146
[2018-01-30 02:28] LABS: HEMATOCRIT 35.2 % (37.0-47.0); HEMOGLOBIN 11.3 gm/dL (12.0-15.0); MCV 93.8 fL (80.0-100.0); RBC 3.75 mil/uL (4.20-5.00); RDW 18.9 % (10.5-14.5); WBC 14.5 thou/uL (4.0-11.0)
[2018-01-30 02:39] LABS: CALCIUM 8.6 mg/dL (8.5-10.1); CREATININE 1.7 mg/dL (0.6-1.0); MAGNESIUM 2.2 mg/dL (1.8-2.4); POTASSIUM 4.5 mmol/L (3.5-5.1)
[2018-01-30 03:57] LABS: BE(vivo) -0.2 mmol/L (-2 to +3); HCO3 26.4 mmol/L (22.0-26.0); PCO2 51.4 mmHg (35.0-45.0); PO2 101.7 mmHg (80.0-100.0); pH 7.328 (7.360-7.450); sO2 97.2 % (92.0-98.0)
[2018-01-30 08:47] LABS: ALBUMIN 2.2 g/dL (3.4-5.0); CALCIUM 8.6 mg/dL (8.5-10.1); CREATININE 1.7 mg/dL (0.6-1.0); PHOSPHORUS 4.1 mg/dL (2.5-4.9); POTASSIUM 4.6 mmol/L (3.5-5.1)
[2018-01-31] VITALS (30 sets, daily range): BP systolic 153–218; BP diastolic 62–157
[2018-01-31 05:32] LABS: BE(vivo) 7.2 mmol/L (-2 to +3); HCO3 33.2 mmol/L (22.0-26.0); PCO2 53.4 mmHg (35.0-45.0); PO2 90.6 mmHg (80.0-100.0); pH 7.411 (7.360-7.450); sO2 96.9 % (92.0-98.0)
[2018-01-31 05:53] LABS: ABSOLUTE NEUTROPHILS 9.5 thou/uL (1.4-8.2); BASOPHILS 0.2 % (0.0-2.0); EOSINOPHILS 0.5 % (0.0-3.0); HEMATOCRIT 35.3 % (37.0-47.0); HEMOGLOBIN 11.3 gm/dL (12.0-15.0); LYMPHOCYTES 10.8 % (24.0-44.0); MCH 29.9 pg (26.0-34.0); MCHC 32.1 g/dL (28.0-37.0); MCV 93.3 fL (80.0-100.0); PLATELET COUNT 119 thou/uL (150-400); POLYS 81.5 % (36.0-66.0); RBC 3.79 mil/uL (4.20-5.00); RDW 18.3 % (10.5-14.5); WBC 11.6 thou/uL (4.0-11.0)
[2018-01-31 06:04] LABS: ALBUMIN 2.2 g/dL (3.4-5.0); CALCIUM 8.8 mg/dL (8.5-10.1); CREATININE 1.4 mg/dL (0.6-1.0); PHOSPHORUS 2.3 mg/dL (2.5-4.9); POTASSIUM 3.7 mmol/L (3.5-5.1)
[2018-02-01] VITALS (30 sets, daily range): BP systolic 120–209; BP diastolic 69–131
[2018-02-01 04:48] LABS: HEMATOCRIT 36.7 % (37.0-47.0); HEMOGLOBIN 11.8 gm/dL (12.0-15.0); MCH 29.8 pg (26.0-34.0); MCHC 32.3 g/dL (28.0-37.0); MCV 92.5 fL (80.0-100.0); PLATELET COUNT 145 thou/uL (150-400); RBC 3.97 mil/uL (4.20-5.00); RDW 17.6 % (10.5-14.5); WBC 13.4 thou/uL (4.0-11.0)
[2018-02-01 05:20] LABS: ALBUMIN 2.5 g/dL (3.4-5.0); CREATININE 1.2 mg/dL (0.6-1.0); DIGOXIN 1.5 ng/mL (0.9-2.0); PHOSPHORUS 2.2 mg/dL (2.5-4.9); POTASSIUM 3.5 mmol/L (3.5-5.1); TOTAL BILIRUBIN 1.1 mg/dL (<0.1-1.0); TOTAL PROTEIN 6.3 g/dL (6.4-8.2)
[2018-02-01 07:02] LABS: ABSOLUTE NEUTROPHILS 9.4 thou/uL (1.4-8.2)
[2018-02-01 07:03] LABS: ANISOCYTOSIS 1+
[2018-02-01 09:35] LABS: AMYLASE 90 U/L (25-115); LIPASE 655 U/L (73-393)
[2018-02-02] VITALS (29 sets, daily range): BP systolic 106–198; BP diastolic 50–136
[2018-02-02 05:43] LABS: BE(vivo) 15.2 mmol/L (-2 to +3); HCO3 41.3 mmol/L (22.0-26.0); PCO2 56.4 mmHg (35.0-45.0); PO2 58.7 mmHg (80.0-100.0); pH 7.483 (7.360-7.450); sO2 91.6 % (92.0-98.0)
[2018-02-02 06:03] LABS: ABSOLUTE NEUTROPHILS 12.9 thou/uL (1.4-8.2); BASOPHILS 0.3 % (0.0-2.0); EOSINOPHILS 0.6 % (0.0-3.0); HEMATOCRIT 37.5 % (37.0-47.0); LYMPHOCYTES 10.6 % (24.0-44.0); MCHC 32.1 g/dL (28.0-37.0); MCV 93.6 fL (80.0-100.0); MONOCYTES 8.2 % (1.0-8.0); PLATELET COUNT 154 thou/uL (150-400); POLYS 80.3 % (36.0-66.0); RDW 18.1 % (10.5-14.5); WBC 16.1 thou/uL (4.0-11.0)
[2018-02-02 06:20] LABS: ALBUMIN 2.6 g/dL (3.4-5.0); CALCIUM 9.1 mg/dL (8.5-10.1); CREATININE 1.1 mg/dL (0.6-1.0); PHOSPHORUS 2.1 mg/dL (2.5-4.9); POTASSIUM 3.3 mmol/L (3.5-5.1)
[2018-02-03] VITALS (25 sets, daily range): BP systolic 128–208; BP diastolic 42–109
[2018-02-03 06:07] LABS: HEMATOCRIT 37.9 % (37.0-47.0); MCH 29.9 pg (26.0-34.0); MCHC 31.8 g/dL (28.0-37.0); MCV 94.1 fL (80.0-100.0); PLATELET COUNT 145 thou/uL (150-400); RBC 4.02 mil/uL (4.20-5.00)
[2018-02-03 06:22] LABS: ALBUMIN 2.4 g/dL (3.4-5.0); CALCIUM 8.8 mg/dL (8.5-10.1); CREATININE 1.3 mg/dL (0.6-1.0); MAGNESIUM 2.1 mg/dL (1.8-2.4); PHOSPHORUS 2.4 mg/dL (2.5-4.9); POTASSIUM 3.5 mmol/L (3.5-5.1)
[2018-02-03 07:42] LABS: ANISOCYTOSIS 1+; POLYCHROMASIA OCCASIONAL
[2018-02-04] VITALS (14 sets, daily range): BP systolic 133–188; BP diastolic 45–67
[2018-02-04 05:11] LABS: ALBUMIN 2.1 g/dL (3.4-5.0); CALCIUM 7.9 mg/dL (8.5-10.1); CREATININE 1.5 mg/dL (0.6-1.0); MAGNESIUM 2.1 mg/dL (1.8-2.4); PHOSPHORUS 2.5 mg/dL (2.5-4.9); POTASSIUM 3.6 mmol/L (3.5-5.1); TOTAL BILIRUBIN 1.5 mg/dL (<0.1-1.0)
[2018-02-04 06:21] LABS: ALBUMIN 2.3 g/dL (3.4-5.0); CALCIUM 8.5 mg/dL (8.5-10.1); CREATININE 1.5 mg/dL (0.6-1.0); MAGNESIUM 2.2 mg/dL (1.8-2.4); PHOSPHORUS 2.8 mg/dL (2.5-4.9); POTASSIUM 3.8 mmol/L (3.5-5.1); TOTAL BILIRUBIN 1.6 mg/dL (<0.1-1.0); TOTAL PROTEIN 5.3 g/dL (6.4-8.2)
[2018-02-05 04:06] VITALS: BP 163/53
[2018-02-05 05:01] LABS: HEMOGLOBIN 10.4 gm/dL (12.0-15.0); MCH 30.7 pg (26.0-34.0); MCHC 32.4 g/dL (28.0-37.0); MCV 94.7 fL (80.0-100.0); RBC 3.38 mil/uL (4.20-5.00); RDW 18.1 % (10.5-14.5); WBC 10.4 thou/uL (4.0-11.0)
[2018-02-05 05:11] LABS: ALBUMIN 2.2 g/dL (3.4-5.0); CALCIUM 8.3 mg/dL (8.5-10.1); CREATININE 1.6 mg/dL (0.6-1.0); PHOSPHORUS 3.5 mg/dL (2.5-4.9); POTASSIUM 4.2 mmol/L (3.5-5.1)
[2018-02-05 07:25] VITALS: BP 143/44
[2018-02-05 11:45] VITALS: BP 140/43
[2018-02-05 14:55] VITALS: BP 145/50
[2018-02-05 20:10] VITALS: BP 159/50
[2018-02-06 04:40] VITALS: BP 149/58
[2018-02-06 06:21] LABS: ABSOLUTE NEUTROPHILS 7.7 thou/uL (1.4-8.2); BASOPHILS 0.9 % (0.0-2.0); EOSINOPHILS 1.2 % (0.0-3.0); HEMATOCRIT 31.6 % (37.0-47.0); HEMOGLOBIN 10.1 gm/dL (12.0-15.0); MCH 30.7 pg (26.0-34.0); MONOCYTES 7.1 % (1.0-8.0); PLATELET COUNT 147 thou/uL (150-400); POLYS 75.8 % (36.0-66.0); RDW 17.7 % (10.5-14.5); WBC 10.1 thou/uL (4.0-11.0)
[2018-02-06 06:32] LABS: ALBUMIN 2.4 g/dL (3.4-5.0); CALCIUM 8.2 mg/dL (8.5-10.1); CREATININE 1.7 mg/dL (0.6-1.0); PHOSPHORUS 2.8 mg/dL (2.5-4.9); POTASSIUM 4.2 mmol/L (3.5-5.1)
[2018-02-06 07:40] VITALS: BP 161/61
[2018-02-06] MEDS ORDERED: AUGMENTIN 875-1 EACH PO (08:50)
[2018-02-06] MEDS ORDERED: NYSTATIN100000 UNI SWISH&SPIT (08:50)
[2018-02-06] MEDS ORDERED: HEPARIN SO5000 UNIT/ SUBQ (08:51)
[2018-02-06] MEDS ORDERED: PACERONE 200 M200 M1 PO (08:51)
[2018-02-06] MEDS ORDERED: CARVEDILOL6.25 MG PO (08:51)
[2018-02-06] MEDS ORDERED: CARDIZEM CD180 MG PO (08:53)
[2018-02-06] MEDS ORDERED: PROTONIX40 M1 PO (08:54)
[2018-02-06] MEDS ORDERED: ZOSYN 2.25 GR2.25 GM IV (11:44)
[2018-02-06 12:15] LABS: ALBUMIN 2.5 g/dL (3.4-5.0); DIRECT BILIRUBIN 0.7 mg/dL (<0.1-0.3); TOTAL BILIRUBIN 1.2 mg/dL (<0.1-1.0); TOTAL PROTEIN 5.7 g/dL (6.4-8.2)
[2018-02-06 17:30] VITALS: BP 172/60
== END 2018-02-06 18:05 | DRG 871 ==
LOC: ER 11:04 → 4S 13:36 → EROBS 13:36 → 4S 14:25 → ICU 01-29 16:49 → 2N 02-04 13:39 → ICU 02-04 13:39 → 2N 02-06 18:05
PROVIDERS: Emergency Medicine; Hospitalist; Internal Medicine Cardiovascular Disease; Internal Medicine Infectious Disease; Internal Medicine Nephrology; Internal Medicine Pulmonary Disease
PROC: 05HB33Z Insertion of Infusion Device into Right Basilic Vein, Percutaneous Approach (ICD-10-PCS; principal; 2018-01-29)
PROC: 5A09357 Assistance with Respiratory Ventilation, Less than 24 Consecutive Hours, Continuous Positive Airway Pressure (ICD-10-PCS; 2018-01-30)
PROC: 5A09357 Assistance with Respiratory Ventilation, Less than 24 Consecutive Hours, Continuous Positive Airway Pressure (ICD-10-PCS; 2018-01-31)
PROC: 5A09357 Assistance with Respiratory Ventilation, Less than 24 Consecutive Hours, Continuous Positive Airway Pressure (ICD-10-PCS; 2018-02-02)
PROC: 5A09357 Assistance with Respiratory Ventilation, Less than 24 Consecutive Hours, Continuous Positive Airway Pressure (ICD-10-PCS; 2018-02-03)
PROC: 5A09357 Assistance with Respiratory Ventilation, Less than 24 Consecutive Hours, Continuous Positive Airway Pressure (ICD-10-PCS; 2018-02-04)
PROC: 5A09357 Assistance with Respiratory Ventilation, Less than 24 Consecutive Hours, Continuous Positive Airway Pressure (ICD-10-PCS; 2018-02-05)
PROC: 0DB68ZX Excision of Stomach, Via Natural or Artificial Opening Endoscopic, Diagnostic (ICD-10-PCS; 2018-02-06)
PROC: 5A09357 Assistance with Respiratory Ventilation, Less than 24 Consecutive Hours, Continuous Positive Airway Pressure (ICD-10-PCS; 2018-02-06)
DX: A41.9 Sepsis, unspecified organism (principal); J96.02 Acute respiratory failure with hypercapnia; G93.40 Encephalopathy, unspecified; J96.01 Acute respiratory failure with hypoxia; K85.90 Acute pancreatitis without necrosis or infection, unspecified; J69.0 Pneumonitis due to inhalation of food and vomit; N17.9 Acute kidney failure, unspecified; L03.116 Cellulitis of left lower limb; I48.92 Unspecified atrial flutter; E46 Unspecified protein-calorie malnutrition; E87.0 Hyperosmolality and hypernatremia; Z68.41 Body mass index [BMI] 40.0-44.9, adult; I13.0 Hypertensive heart and chronic kidney disease with heart failure and stage 1 through stage 4 chronic kidney disease, or unspecified chronic kidney disease; Z88.6 Allergy status to analgesic agent; J44.9 Chronic obstructive pulmonary disease, unspecified; I48.91 Unspecified atrial fibrillation; I25.10 Atherosclerotic heart disease of native coronary artery without angina pectoris; N18.9 Chronic kidney disease, unspecified; E11.22 Type 2 diabetes mellitus with diabetic chronic kidney disease; E11.42 Type 2 diabetes mellitus with diabetic polyneuropathy; M81.0 Age-related osteoporosis without current pathological fracture; Z96.643 Presence of artificial hip joint, bilateral; R65.20 Severe sepsis without septic shock; G47.33 Obstructive sleep apnea (adult) (pediatric); E87.5 Hyperkalemia; I50.9 Heart failure, unspecified; E66.9 Obesity, unspecified; Z60.2 Problems related to living alone; L97.529 Non-pressure chronic ulcer of other part of left foot with unspecified severity; K12.1 Other forms of stomatitis; Z66 Do not resuscitate; B95.4 Other streptococcus as the cause of diseases classified elsewhere; Z96.659 Presence of unspecified artificial knee joint; E78.00 Pure hypercholesterolemia, unspecified; D73.5 Infarction of spleen; K82.9 Disease of gallbladder, unspecified; Z88.1 Allergy status to other antibiotic agents; Z88.8 Allergy status to other drugs, medicaments and biological substances; Z86.73 Personal history of transient ischemic attack (TIA), and cerebral infarction without residual deficits; Z79.4 Long term (current) use of insulin; Z79.52 Long term (current) use of systemic steroids; Z90.710 Acquired absence of both cervix and uterus; Z86.010 Personal history of colon polyps
CPT/HCPCS: 10078; 10081; 10195; 10196; 27000; 62110; 62900; 70005

== ENCOUNTER 2018-02-26 09:09 | Inpatient (IN) | payer OTHER, BC ==
[~2018-02-26] VITALS: Ht 152.4 cm; Wt 88.0 kg
[2018-02-26] VITALS (15 sets, daily range): BP systolic 134–178; BP diastolic 48–89
--- NOTE | ~2018-02-26 | EKG ---
[address] [place] [employer] 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
--- NOTE | ~2018-02-26 | 2DMMODE ---
[address] [address] D/M-MODE ECHOCARDIOGRAM Name: VIOLETA PALM Room #: 351-P ADM IN M.R.#: [id number] Admission: 02/26/18 Attend Phys: Russel Acevedo MD Discharge: Date of : 34 Date of Service: 03/05/18 0953 Report #: [id number] THIS REPORT FOR: //name// APPROVED REPORT Study performed: 03/05/2018 09:01:52 EXAM: Limited 2D, Doppler, and color-flow Echocardiogram Patient Location: Bedside Room #: 351 Status: routine BSA: 1.84 HR: 73 bpm BP: 176/67 mmHg Other Information Study Quality: Adequate Indications Congestive Heart Failure Diabetes CAD Hypertension/HDD Limited echo to assess PA pressure 2D Dimensions IVC: 27.00 mm Tricuspid Valve TR Peak Kris.: 4.50 m/s RAP Estimate: 15.00 mmHg TR Peak Gr.: 80.98 mmHg Left Ventricle The left ventricular systolic function is normal. The left ventricular ejection fraction is within the normal range. LVEF is 60-65%. Atria Left atrium is dilated. Right atrium is dilated. Aortic Valve The Aortic valve is sclerotic. Mild aortic regurgitation. Mitral Valve Moderate mitral annular calcification. Moderate mitral regurgitation. [address] [address] D/M-MODE ECHOCARDIOGRAM Name: VIOLETA PALM Room #: 351-P ADM IN M.R.#: [id number] Admission: 02/26/18 Attend Phys: Russel Acevedo MD Discharge: Date of : 34 Date of Service: 03/05/18 0953 Report #: [id number] Tricuspid Valve The tricuspid valve is normal in structure. Severe tricuspid regurgitation. PAP is estimated at 95 mmHg. Great Vessels IVC is dilated and collapses <50% with inspiration. Pericardium There is no pericardial effusion. <Conclusion> Limited/abbreviated echocardiogram The left ventricular systolic function is normal. LVEF is 60-65%. Both atria are dilated. The aortic valve is sclerotic. Moderate mitral annular calcification. Severe tricuspid regurgitation. Pulmonary artery pressure estimated at 95 mmHg. There is no pericardial effusion. <ELECTRONICALLY SIGNED> By: Avel Ram MD, FACC 03/05/18952 2 2 Avel Ram MD, FACC /INF
--- NOTE | ~2018-02-26 | HC ---
[facility] [place] [address] CONSULTATION Name: VIOLETA PALM Room #: 351-P ADM IN M.R.#: [id number] Admission: 02/26/18 Attend Phys: Russel Acevedo MD Discharge: Date of : 34 Report #: [id number] THIS REPORT FOR: //name// CC: She Acevedo DATE OF SERVICE: 03/02/2018 PERSONAL PHYSICIAN: Dr. Acevedo. CHIEF COMPLAINT: Left foot wound and multiple skin tears. HISTORY OF PRESENT ILLNESS: This is an 82-year-old white female who was recently hospitalized for sepsis and pneumonia. The patient was then discharged to [facility] long-term acute care facility where she had an event of hypoglycemia and hypothermia and was brought back to [facility] for further care. While here, the patient's family had requested that we see her for a chronic ulcer on her left plantar foot. The patient has slowly been following in [facility] for this. The patient denies any pain in the foot. The patient also was noted to have multiple skin tears on the upper extremities. The patient denies any pain with these. The patient and family have no other associated concerns about the wound care. PAST MEDICAL HISTORY: Significant for recent pneumonia, COPD, neuropathy, atrial fibrillation, coronary artery disease, hypertension, type 2 diabetes, cellulitis of lower extremities. CURRENT MEDICATIONS: Multiple inpatient medication list. DRUG ALLERGIES: IBUPROFEN, PROMETHAZINE, CLINDAMYCIN. SOCIAL HISTORY: The patient has history of smoking, but quit several years ago. FAMILY HISTORY: Not pertinent to current medical condition. REVIEW OF SYSTEMS: CONSTITUTIONAL: The patient denies fevers or chills. NEUROLOGIC: The patient with overall generalized weakness, but no isolated weakness in arms or legs. EYES: No complaints. ENT: No complaints. CARDIAC: The patient has chronic lower extremity edema, but no chest pain or palpitation. RESPIRATORY: The patient has associated shortness of breath and cough with wheezes, is currently being treated for pneumonia. GASTROINTESTINAL: No nausea, vomiting, abdominal pain. [facility] [address] [place] [address] CONSULTATION Name: VIOLETA PALM Room #: 351-[facility] IN M.R.#: [id number] Admission: 02/26/18 Attend Phys: Russel Acevedo MD Discharge: Date of : 34 Report #: [id number] GENITOURINARY: The patient denies urgency or frequency. Sifuentes catheter is in place. MUSCULOSKELETAL: No complaints. SKIN: There are multiple skin tears, superficial on the upper extremities as well as a chronic ulceration on the left fifth metatarsal head. PHYSICAL EXAMINATION: VITAL SIGNS: Temperature 36.4, rest of vitals are stable. GENERAL: This is alert and oriented x 3, chronically ill appearing white female who is extremely hard of hearing. HEENT: Normocephalic, atraumatic. Mucous membranes are somewhat dry. Pupils are round. Sclerae are white. Nasal cannula is in place for oxygenation. NECK: Supple, nontender. LUNGS: Coarse breath sounds heard throughout. HEART: Irregularly irregular with 2/6 systolic ejection murmur. ABDOMEN: Soft, nontender. EXTREMITIES: The patient has 1-2+ edema bilateral lower extremities. Evaluation of left foot reveals 1+ dorsalis pedis and faint posterior tibial pulse. On the left fifth metatarsal head on the lateral aspect is a chronic ulceration with dry, intact eschar, limited breakdown of the skin. No associated ulceration noted on the rest of the foot or toes. On reevaluation, right foot shows no associated ulceration. Bilateral heels are intact. The patient has bilateral skin tears on the upper extremities, all of which have appropriate dressings in place. No signs of infection. NEUROLOGIC: Cranial nerves 2-12 grossly intact. Motor and sensory are grossly intact. LABORATORY VALUES: White count 7.6, hemoglobin 7.7. Albumin is 2.5. IMPRESSION: 1. Chronic ulceration, left lateral fifth metatarsal head limited to breakdown of skin. 2. Diabetes mellitus. 3. History of pneumonia. 4. Protein-calorie malnutrition - severe with albumin of 2.5. 5. Generalized debility. PLAN: At this time, the patient's daughter is unclear of last time the patient had any arterial Dopplers performed. We will check Doppler of the lower extremities to evaluate for underlying arterial disease. We will use a foam dressing over the left lateral fifth metatarsal head ulceration changes Monday, Monday and Monday. Skin tears on the upper extremities. We will continue with the clear dressings over the skin tears at this time, watch them closely, change those as needed. We will make sure we maximize the patient's oral [address] [address] CONSULTATION Name: VIOLETA PALM Room #: 351-P ADM IN M.R.#: [id number] Admission: 02/26/18 Attend Phys: Russel Acevedo MD Discharge: Date of : 34 Report #: [id number] protein supplementation for healing. The patient will continue all other current medications and we will continue to follow the patient. <ELECTRONICALLY SIGNED> By: Alvaro Mensah MD 03/05/18 0816 1316 1854 Alvaro Mensah MD /nt
--- NOTE | ~2018-02-26 | HC ---
[facility] [place] [address] CONSULTATION Name: VIOLETA PALM Room #: 247-P ADM IN M.R.#: [id number] Admission: 02/26/18 Attend Phys: Russel Acevedo MD Discharge: Date of : 34 Report #: [id number] THIS REPORT FOR: //name// CC: She Acevedo DATE OF SERVICE: 02/28/2018 REQUESTING PHYSICIAN: Dr. Acevedo. REASON FOR CONSULTATION: Respiratory failure. HISTORY OF PRESENT ILLNESS: The patient is an 82-year-old female, followed by Dr. Alexis, in our practice for numerous cardiovascular problems, was transferred from a rehab detention with respiratory failure and was diagnosed with a right-sided pneumonia and aspiration pneumonia, sepsis, [id number] kidney disease. The patient is DNR, but at this point in time, the patient is currently in the ICU on high-flow O2 via facemask and IV antibiotics. She is alert, although hard of hearing. She is answering questions more or less appropriately at her baseline from previous evaluations. She clinically is without complaints of chest pain or pressure. Her chest x-rays have showed persistent right-sided infiltrates and feeling is that she has pneumonia. PAST MEDICAL HISTORY: Chronic diastolic heart failure, ejection fraction earlier this spring demonstrated an EF of 60%-65%. She has mild aortic stenosis, mild aortic regurgitation. She has mild mitral regurgitation. She has hypertension, atrial arrhythmias, morbid obesity, complications from diabetes mellitus, coronary artery disease, prior PCI. HOME MEDICATIONS: Include the following: Torsemide 20 mg daily, magnesium, nystatin, amiodarone 400 mg p.o. b.i.d., carvedilol 6.25 mg p.o. b.i.d., Protonix 40 mg daily and she is also on IV antibiotics currently with the following: Vancomycin, insulin p.r.n. and Zosyn. REVIEW OF SYSTEMS: GASTROINTESTINAL: No nausea or vomiting. CARDIOVASCULAR: No chest pain. PULMONARY: Positive shortness of breath, positive cough. NEUROLOGIC: Denies seizures. EYES: No visual changes. EARS: Positive chronic hearing loss. SKIN: Positive edema. MUSCULOSKELETAL: Positive joint pain. [facility] [address] [place] [address] CONSULTATION Name: VIOLETA PALM Room #: 247-P ADM IN M.R.#: [id number] Admission: 02/26/18 Attend Phys: Russel Acevedo MD Discharge: Date of : 34 Report #: [id number] ALLERGIES: She has ALLERGIES to IBUPROFEN, CLINDAMYCIN and PROMETHAZINE. PAST SURGICAL HISTORY: No recent surgeries. PHYSICAL EXAMINATION: VITAL SIGNS: Blood pressures in the 160s/70s, in a sinus rhythm which is in the low 100s. Respiratory is 26, O2 sats 96% on BiPAP. GENERAL: This is an obese elderly female. She is alert. NECK: There is no jugular venous distention. FACE: There is no facial asymmetry. CARDIOVASCULAR: Heart tones are distant. LUNGS: Breath sounds are coarse bilaterally. ABDOMEN: Nontender. EXTREMITIES: There is edema of her upper extremities, predominantly in her hands bilaterally and also pedal edema. NEUROLOGIC: There are no focal deficits. LABORATORY DATA: Electrocardiogram demonstrates from the 9 a sinus ectopic atrial or ectopic atrial rhythm, first-degree AV block, bifascicular block, rate 55. X-ray reveals unchanged cardiomegaly with a right IJ with small pleural effusion. There is right middle and right lower lobe infiltrates present. ASSESSMENT AND PLAN: 1. Respiratory failure. This is multifactorial. She has chronic diastolic heart failure, but predominantly appears she has likely aspiration pneumonia. A swallow study has been ordered and currently she is n.p.o., but if she swallows, we will need to resume some of her cardiovascular medicines to prevent atrial arrhythmias. 2. Coronary artery disease. She reports no angina. We will not pursue any treatment aside from medical therapy. 3. Chronic diastolic heart failure. She should be restarted at a low dose of diuretics as her renal function apparently has stabilized. 4. Hypertension. This should come down with Cardizem, which we can give the IV if necessary if she failed swallow studies. 5. Acute kidney injury. Apparently, she had issues earlier in the hospitalization. 6. Acute hypoxic respiratory failure with pneumonia. She is on broad-spectrum IV antibiotics. 7. Dr-tuj-bmwwczuvjsa. By: [id number] Chaim Rea MD, FACC /nt
--- NOTE | ~2018-02-26 | HC ---
[facility] [place] [address] CONSULTATION Name: VIOLETA PALM Room #: 247-P ADM IN M.R.#: [id number] Admission: 02/26/18 Attend Phys: Russel Acevedo MD Discharge: Date of : 34 Report #: [id number] THIS REPORT FOR: //name// CC: She Acevedo DATE OF SERVICE: 02/28/2018 ATTENDING PHYSICIAN: Dr. Acevedo. REASON FOR CONSULTATION: Acute and chronic kidney disease. HISTORY OF PRESENT ILLNESS: The patient is very well known to our service. She has chronic kidney disease stage 3 with baseline creatinine of about 1.5, very severe chronic obstructive pulmonary disease with right-sided failure, cor pulmonale, requiring complex diuretic regimen in the past. She was recently admitted to this hospital with cellulitis complicated by aspiration pneumonia, sepsis and possible pancreatitis, all of which mostly resolved. She was recuperating at [facility] when she developed hypoglycemia, then CO2 retention, CO2 narcosis, respiratory acidosis, was transferred back here and is being treated for those things. PAST MEDICAL HISTORY: Longstanding diabetes mellitus, rather severe chronic obstructive pulmonary disease with right-sided failure and cor pulmonale, chronic kidney disease as mentioned above, history of paroxysmal atrial fibrillation, previous coronary artery disease with stents, bilateral hip arthroplasties and hypertension. ALLERGIES: REPORTEDLY TO IBUPROFEN, CLINDAMYCIN, AND PROMETHAZINE. MEDICATIONS: Please see the chart. FAMILY HISTORY: No renal disease. SOCIAL HISTORY: Past smoker, but not any longer. No substantial alcohol. Has lived with various family members. REVIEW OF SYSTEMS: GENERAL: The patient is on CPAP, unable to really answer much in the way of questions in ICU at the current time. EYES: Vision is poor from macular degeneration. ENT: Hearing is not great. No mouth sores. ENDOCRINE: Positive for the diabetes. RESPIRATORY: Chronically easily short winded. CARDIAC: Mostly right-sided failure with previous coronary stent as well. GASTROINTESTINAL: Currently, she has been n.p.o. although they are going to let [facility] [place] [address] CONSULTATION Name: VIOLETA PALM Room #: [facility] IN ..#: [id number] Admission: 02/26/18 Attend Phys: Russel Acevedo MD Discharge: Date of : 34 Report #: [id number] her drink now. GENITOURINARY: No dysuria, hematuria. NEUROLOGIC: A little bit of confusion. PHYSICAL EXAMINATION: GENERAL: Chronically ill-appearing patient, quite overweight. BiPAP is on. SKIN: Multiple ecchymoses. SKELETAL: Shows her to be rather obese, well developed, well nourished. HEENT: Extraocular movements are full. Vision intact, but diminished. BiPAP in place. NECK: Supple. CHEST: Diminished breath sounds. HEART: Regular, but distant. ABDOMEN: Soft, obese. EXTREMITIES: There is really very little edema in the lower extremities. Her upper extremities are somewhat puffy. LABORATORY DATA: The sodium is 153, the creatinine is 1.3, potassium is 4.1. ASSESSMENT AND PLAN: 1. Volume overload. She has chronic right-sided failure, currently volume status is actually fairly good. I will discontinue diuretics and watch. 2. Hypernatremia. We will let her drink, increase free water, give her a little D5W. 3. Severe chronic obstructive pulmonary disease with CO2 retention. 4. Diabetes mellitus. 5. History of coronary stent. 6. Chronic debility. By: [id number] Robert Dominguez MD /nt
--- NOTE | ~2018-02-26 | HC ---
[facility] [place] [address] CONSULTATION Name: VIOLETA PALM Room #: 247-P ADM IN M.R.#: [id number] Admission: 02/26/18 Attend Phys: Russel Acevedo MD Discharge: Date of : 34 Report #: [id number] THIS REPORT FOR: //name// CC: Guilherme Acevedo DATE OF SERVICE: 02/26/2018 PULMONARY CONSULTATION REFERRING PHYSICIAN: Russel Acevedo MD PRIMARY PHYSICIAN: Guilherme Espinoza MD REASON FOR REFERRAL: Acute respiratory failure. HISTORY OF PRESENT ILLNESS: The patient is an 82-year-old white female who was brought to Emergency Room with dyspnea. A pulmonary consultation was requested. The patient is followed longitudinally by Dr. Hermosillo. She is followed for sleep apnea along with COPD. The patient was most recently hospitalized at [facility] in January 2018 for severe sepsis and cellulitis. She was then transferred to [facility] long-term care facility. According to family, she has not felt well for the past week. She was treated for possible bronchitis. They were having IV access problem. According to Dr. Naidu, the patient's blood sugar was said to be markedly low. She had insulin, but not has a good appetite. She was given D50. Blood glucose level on repeat was 118. Currently in the ER, she is in moderate respiratory distress. She is not tolerating the BiPAP very well. The patient does have a medical directive, she wishes to be a DNR. According to family, the patient has had poor quality of life. For the past 12 years, she has required a walker to get around primarily because of the bad knees. 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 PAST MEDICAL HISTORY: As mentioned above, COPD, mildly severe, JOHN on home [facility] [address] [place] [address] CONSULTATION Name: VIOLETA PALM Room #: 247-P ADM IN .R.#: [id number] Admission: 02/26/18 Attend Phys: Russel Acevedo MD Discharge: Date of : 34 Report #: [id number] CPAP, neuropathy, atrial fibrillation, coronary artery disease, hypertension, chronic kidney disease, diabetes mellitus type 2, history of heart failure, not specified, CVA in 2012, peripheral neuropathy, history of TIAs multiple, obstructive sleep apnea on CPAP on 2 liters of O2, macular degeneration, osteoporosis, diabetic retinopathy, history of abdominal abscess, cellulitis involving the lower extremities, C. difficile colitis, history of lower GI bleed. PAST SURGICAL HISTORY: As mentioned above including prior stent placement for coronary arteries, hysterectomy, bilateral hip replacement, polypectomy. ALLERGIES: IBUPROFEN WHICH CAUSES HIVES AND EDEMA, CLINDAMYCIN REACTIONS UNSPECIFIED, PROMETHAZINE REACTIONS UNSPECIFIED. HOME MEDICATIONS: List are reviewed, which include clonidine, multivitamins, nebulized albuterol, Symbicort, ProAir, Aldactone, Neurontin, prednisone 5 mg once a day, aspirin, Humalog, Zyloprim, Colace, Lantus insulin supplements. FAMILY HISTORY: Noncontributory. SOCIAL HISTORY: She has smoked in the past, but quit years ago. The patient denies alcohol use. Up to recently, she has been living independently 5 weeks ago in an apartment. Otherwise, family does admit that her overall health condition has gradually deteriorated with progressive weakness. PHYSICAL EXAMINATION: GENERAL: She is awake, mildly distressed, dyspneic. VITAL SIGNS: Temperature is (?) 93.8 degrees Fahrenheit, pulse is 55, respiratory rate 24, blood pressure is 156/67 mmHg, saturation 97%. HEENT: Normocephalic, atraumatic. NECK: Supple, without any lymphadenopathy or thyromegaly. CHEST: Breath sounds are fair due to poor effort. Few scattered crackles in the right lung field. No wheezes. CARDIOVASCULAR: Normal S1, S2. There is no JVD. There is no carotid bruit. Pulses are 2+/4+ bilaterally. ABDOMEN: Soft, nontender. No organomegaly or masses felt. GENITOURINARY: Deferred. RECTAL: Deferred. EXTREMITIES: No cyanosis, clubbing. Less than 1+ bilateral pretibial edema. DERMATOLOGIC: Remarkable for ecchymosis, mild throughout. LABORATORY DATA: Chest x-ray shows moderate right-sided infiltrates. Central line is in the superior vena cava, questionable right lower lobe atelectasis and effusion. Creatinine is 1.3. Electrolytes: Sodium 146, potassium 3.1, chloride 113, bicarbonate is 20, BUN is 74. Liver function enzymes are mildly elevated. WBC 12,000 without evidence of bandemia. Albumin 2.6. Arterial [facility] [address] [place] [address] CONSULTATION Name: VIOLETA PALM Room #: 247-P ADM IN M.R.#: [id number] Admission: 02/26/18 Attend Phys: Russel Acevedo MD Discharge: Date of : 34 Report #: [id number] blood gas is pending. IMPRESSION: 1. Acute respiratory failure in this 82-year-old white female. Chest x-ray shows extensive right-sided infiltrate. She is hypothermic. 2. Suspect pneumonia, suspect aspiration. Also, consider other nosocomial infectious. 3. Severe sepsis. 4. Chronic kidney disease, creatinine 1.3. 5. Chronic obstructive pulmonary disease, moderately severe, with exacerbation. 6. Obstructive sleep apnea on home continuous positive airway pressure with O2. 7. Progressive deconditioned and weakness. 8. Diabetes mellitus type 2. 9. Hypertension. 10. Coronary artery disease. 11. Diabetic nephropathy. 12. Atrial fibrillation, rate controlled. MEDICAL DIRECTIVE: She is a DNR. RECOMMENDATION: We will continue noninvasive positive pressure ventilation, broad spectrum antibiotics, corticosteroids, and bronchodilators. I had a long discussion with the family regarding respiratory status. Given that she is a DNR, my concern is that she may deteriorate. If she is deemed to be suffering, I have recommended to consider palliative care for the patient. The family voices understanding. DVT and GI prophylaxis will be recommended. Thank you for this consultation. <ELECTRONICALLY SIGNED> By: Rao Condon MD 02/27/18 1333 1444 31 Rao Condon MD /nt
--- NOTE | ~2018-02-26 | HC ---
[facility] [place] [address] CONSULTATION Name: VIOLETA PALM Room #: 247-P ADM IN M.R.#: [id number] Admission: 02/26/18 Attend Phys: Russel Acevedo MD Discharge: Date of : 33 Report #: [id number] THIS REPORT FOR: //name// CC: She Acevedo REASON FOR CONSULTATION: I was asked to evaluate concerning pneumonia and respiratory failure. HISTORY OF PRESENT ILLNESS: The patient is an 82-year-old, recently hospitalized at [facility] where she was diagnosed with group C, streptococcal bacteremia related to left leg cellulitis along with aspiration pneumonitis, splenic infarct, oral mucosal ulcers and pancreatitis. She was treated with IV antibiotic therapy and after approximately 10-day hospital stay, she was discharged to [facility] where she made reasonable progress until yesterday when she developed hypoglycemia and respiratory failure. She has had issues with bronchitis leading up to this. No nausea or vomiting. No diarrhea. She had issues with IV access. She had a previous PICC line that was intermittently functioning, now has a right IJ catheter. She was transported to the emergency room after given an amp of D50. She is underlying diabetic. She was placed on BiPAP. She has known COPD, moderately severe with obstructive sleep apnea where she uses a CPAP mask, also has coronary artery disease, atrial fibrillation in addition to her chronic kidney disease. She was placed in the intensive care unit and now continues on BiPAP. PAST MEDICAL HISTORY: Includes multiple medical issues as noted previously including COPD, obstructive sleep apnea, diabetes, neuropathy, chronic kidney disease, TIAs, macular degeneration, diabetic retinopathy, coronary artery disease, hypertension, atrial fibrillation, congestive heart failure, lower extremity cellulitis, C. difficile colitis, lower GI bleed, abdominal abscess, coronary artery stenting, hysterectomy, bilateral hip arthroplasties, and polypectomy. ALLERGIES: IBUPROFEN, CLINDAMYCIN, and PROMETHAZINE. MEDICATIONS: As noted on her MAR including 5 mg of prednisone prior to her admission, now on vancomycin and Zosyn. She did receive one dose of ciprofloxacin. She is on methylprednisolone 80 mg every 8 hours. FAMILY HISTORY: Noncontributory. SOCIAL HISTORY: She is a past smoker, no significant alcohol intake. She was living independently prior to this most recent hospital stay. REVIEW OF SYSTEMS: As noted above. PHYSICAL EXAMINATION: [facility] [address] [place] [address] CONSULTATION Name: VIOLETA PALM Room #: 247-P [facility] IN M.R.#: [id number] Admission: 02/26/18 Attend Phys: Russel Acevedo MD Discharge: Date of : 33 Report #: [id number] VITAL SIGNS: Afebrile and hemodynamically stable. She was hypothermic on admission yesterday morning. She is on 70% BiPAP. She had 2+ anasarca. Multiple bruises and skin tears with very thin skin, small eschar over the left lateral 5th metatarsal region. No adenopathy. BiPAP mask in place. NECK: Supple. LUNGS: Decreased breath sounds bilaterally with no consolidation, no rub. HEART: Regular, without murmur. ABDOMEN: Soft, obese, and nontender. No hepatosplenomegaly or mass. EXTREMITIES: Otherwise unremarkable. NEUROLOGIC: Nonfocal. LABORATORY STUDIES: CT scan of the chest revealed bilateral consolidating infiltrates with small bilateral pulmonary effusions. There were associated air bronchograms. These areas included the right upper lobe, right lower lobe and left lower lobe. There was fluid in the mildly distended esophagus. CT of the head, no acute change. Blood cultures negative today. Urine culture, no growth to date. ABG earlier this morning on FiO2 of 70%, had a pO2 of 77, pCO2 of 50, pH 7.28. Hemoglobin 8.6, white count 17.8, platelet count 149,000. Sodium 151, potassium 4.2, bicarbonate 29, creatinine 1.2. Liver function test normal. Albumin at 2.5. Urinalysis greater than 20 rbc's, moderate bacteria, few wbc's. Troponin unremarkable. Urine culture, no growth to date. IMPRESSION: An 82-year-old with multisystem disease, now with healthcare-associated pneumonia and respiratory failure along with leukocytosis and anemia. Recommend continuing aggressive antibiotic therapy. Attempt sputum culture if possible. Treat for both Gram-negative and Gram-positive organisms. Check urine legionella screen. Continue with aspiration precautions. Follow serial chest x-rays and serial laboratory studies. I have discussed the case with nursing and the patient's daughter at the bedside. <ELECTRONICALLY SIGNED> By: Dell Vizcaino MD 02/28/18 [id number] Dell Vizcaino MD /nt
[~2018-02-26 09:09] MED LIST changes: +AUGMENTIN 875-1 EACH PO; +CARDIZEM CD180 MG PO; +HEPARIN SO5000 UNIT/ SUBQ; +NYSTATIN100000 UNI SWISH&SPIT; +PACERONE 200 M200 M1 PO; +PROBIOTIC1 EAC1 PO; +PROTONIX40 M1 PO; +ZOSYN 2.25 GR2.25 GM IV
[2018-02-26 10:19] LABS: HEMATOCRIT 27.4 % (37.0-47.0); MCH 31.1 pg (26.0-34.0); MCHC 32.8 g/dL (28.0-37.0); MCV 94.9 fL (80.0-100.0); PLATELET COUNT 148 thou/uL (150-400); RBC 2.89 mil/uL (4.20-5.00); RDW 17.5 % (10.5-14.5)
[2018-02-26 10:26] LABS: CALCIUM 8.9 mg/dL (8.5-10.1); CREATININE 1.3 mg/dL (0.6-1.0); POTASSIUM 3.1 mmol/L (3.5-5.1)
[2018-02-26 10:32] LABS: ALBUMIN 2.6 g/dL (3.4-5.0); DIRECT BILIRUBIN 0.5 mg/dL (<0.1-0.3); TOTAL BILIRUBIN 0.8 mg/dL (<0.1-1.0); TOTAL PROTEIN 6.1 g/dL (6.4-8.2)
[2018-02-26 11:19] LABS: ABSOLUTE NEUTROPHILS 9.2 thou/uL (1.4-8.2); ANISOCYTOSIS 1+; MYELOCYTES 2 %; POIKILOCYTOSIS SLIGHT; POLYCHROMASIA SLIGHT
[2018-02-26 15:01] LABS: BE(vivo) -1.5 mmol/L (-2 to +3); HCO3 25.3 mmol/L (22.0-26.0); PCO2 52.5 mmHg (35.0-45.0); PO2 138.4 mmHg (80.0-100.0); sO2 98.5 % (92.0-98.0)
[2018-02-26 15:01] LABS: BE(vivo) 0.3 mmol/L (-2 to +3); PCO2 62.7 mmHg (35.0-45.0); PO2 64.5 mmHg (80.0-100.0); sO2 89.1 % (92.0-98.0)
[2018-02-26 16:56] LABS: pH 7.268 (7.360-7.450)
[2018-02-26 17:01] LABS: pH 7.301 (7.360-7.450)
[2018-02-26] MEDS ORDERED: CARDIZEM CD240 MG PO (18:34)
[2018-02-26] MEDS ORDERED: ENOXAPARIN30 MG/0.1 SUBQ (18:35)
[2018-02-26] MEDS ORDERED: MUCINEX600 MG PO (18:36)
[2018-02-26] MEDS ORDERED: HUMALOG100 UNIT/1 SUBQ (18:38)
[2018-02-26] MEDS ORDERED: PIPERACIL-TA3.375 GM IV (18:40)
[2018-02-26] MEDS ORDERED: MIRALAX17 GM PO (18:41)
[2018-02-26] MEDS ORDERED: TYLENOL325 MG PO (18:57)
[2018-02-26] MEDS ORDERED: BISACODYL SUPP10 MG RECTAL (18:57)
[2018-02-26] MEDS ORDERED: CLOTRIMAZOLE 1%15 G1 TOP (18:58)
[2018-02-26] MEDS ORDERED: FLEET ENEMA133 ML RC (18:59)
[2018-02-26 21:11] LABS: URINE BILIRUBIN NEGATIVE (Negative); URINE BLOOD 3+ (Negative); URINE CLARITY CLEAR; URINE COLOR YELLOW; URINE GLUCOSE-RANDOM* NEGATIVE (Negative); URINE KETONES NEGATIVE (Negative); URINE NITRITE-REFLEX NEGATIVE (Negative); URINE PROTEIN (DIPSTICK) NEGATIVE (Negative); URINE SPECIFIC GRAVITY 1.015 (1.005-1.035); URINE UROBILINOGEN 0.2 E.U./dl (0.2-1.0)
[2018-02-26 21:12] LABS: URINE LEUKOCYTES-REFLEX TRACE (Negative)
[2018-02-26 21:15] LABS: SQUAMOUS 0-3 Few /LPF (0-3); URINE RBC >20 Many /HPF (0-2); URINE WBC-REFLEX 6-15 Few /HPF (0-5)
[2018-02-26 21:16] LABS: CASTS None Seen /LPF (None Seen); CRYSTALS None Seen /LPF (None Seen)
[2018-02-27] VITALS (20 sets, daily range): BP systolic 134–166; BP diastolic 57–117
[2018-02-27 05:21] LABS: ALBUMIN 2.5 g/dL (3.4-5.0); CALCIUM 8.8 mg/dL (8.5-10.1); CREATININE 1.2 mg/dL (0.6-1.0); TOTAL BILIRUBIN 0.9 mg/dL (<0.1-1.0)
[2018-02-27 05:22] LABS: POTASSIUM 4.2 mmol/L (3.5-5.1)
[2018-02-27 05:31] LABS: HEMATOCRIT 27.6 % (37.0-47.0); HEMOGLOBIN 8.6 gm/dL (12.0-15.0); MCH 30.6 pg (26.0-34.0); MCHC 31.4 g/dL (28.0-37.0); MCV 97.5 fL (80.0-100.0); RBC 2.83 mil/uL (4.20-5.00); WBC 17.8 thou/uL (4.0-11.0)
[2018-02-27 08:31] LABS: BE(vivo) -3.5 mmol/L (-2 to +3); HCO3 23.3 mmol/L (22.0-26.0); PCO2 50.2 mmHg (35.0-45.0); PO2 77.8 mmHg (80.0-100.0); sO2 93.9 % (92.0-98.0)
[2018-02-27 08:32] LABS: pH 7.284 (7.360-7.450)
[2018-02-28] VITALS (22 sets, daily range): BP systolic 129–188; BP diastolic 50–86
[2018-02-28 05:49] LABS: ABSOLUTE NEUTROPHILS 13.3 thou/uL (1.4-8.2); HEMATOCRIT 25.6 % (37.0-47.0); HEMOGLOBIN 7.9 gm/dL (12.0-15.0); LYMPHOCYTES 4.3 % (24.0-44.0); MCH 30.5 pg (26.0-34.0); MCV 98.4 fL (80.0-100.0); MONOCYTES 3.1 % (1.0-8.0); PLATELET COUNT 145 thou/uL (150-400); POLYS 92.6 % (36.0-66.0); RDW 18.4 % (10.5-14.5); WBC 14.4 thou/uL (4.0-11.0)
[2018-02-28 05:57] LABS: CREATININE 1.3 mg/dL (0.6-1.0); POTASSIUM 4.1 mmol/L (3.5-5.1)
[2018-03-01] VITALS (24 sets, daily range): BP systolic 151–183; BP diastolic 63–106
[2018-03-01 06:11] LABS: ALBUMIN 2.5 g/dL (3.4-5.0); CALCIUM 9.5 mg/dL (8.5-10.1); CREATININE 1.3 mg/dL (0.6-1.0); PHOSPHORUS 3.5 mg/dL (2.5-4.9); POTASSIUM 4.2 mmol/L (3.5-5.1)
[2018-03-01 15:44] LABS: BE(vivo) -1.9 mmol/L (-2 to +3); HCO3 24.1 mmol/L (22.0-26.0); PCO2 47.2 mmHg (35.0-45.0); sO2 51.3 % (92.0-98.0)
[2018-03-01 15:46] LABS: PO2 29.6 mmHg (80.0-100.0); pH 7.326 (7.360-7.450)
[2018-03-01 17:31] LABS: BE(vivo) -3.8 mmol/L (-2 to +3); HCO3 21.3 mmol/L (22.0-26.0); PCO2 38.7 mmHg (35.0-45.0); PO2 58.6 mmHg (80.0-100.0); pH 7.358 (7.360-7.450); sO2 89.5 % (92.0-98.0)
[2018-03-02] VITALS (14 sets, daily range): BP systolic 119–159; BP diastolic 50–109
[2018-03-02 05:12] LABS: ABSOLUTE NEUTROPHILS 7.1 thou/uL (1.4-8.2); BASOPHILS 0.2 % (0.0-2.0); HEMATOCRIT 23.9 % (37.0-47.0); HEMOGLOBIN 7.7 gm/dL (12.0-15.0); LYMPHOCYTES 4.7 % (24.0-44.0); MCH 30.8 pg (26.0-34.0); MCHC 32.4 g/dL (28.0-37.0); MCV 95.1 fL (80.0-100.0); MONOCYTES 2.9 % (1.0-8.0); PLATELET COUNT 141 thou/uL (150-400); POLYS 92.2 % (36.0-66.0); RBC 2.52 mil/uL (4.20-5.00); RDW 17.3 % (10.5-14.5); WBC 7.6 thou/uL (4.0-11.0)
[2018-03-02 05:22] LABS: ALBUMIN 2.5 g/dL (3.4-5.0); CALCIUM 9.1 mg/dL (8.5-10.1); CREATININE 1.3 mg/dL (0.6-1.0); PHOSPHORUS 3.9 mg/dL (2.5-4.9); POTASSIUM 4.3 mmol/L (3.5-5.1)
[2018-03-03 00:40] VITALS: BP 133/50
[2018-03-03 04:00] VITALS: BP 165/76
[2018-03-03 06:24] LABS: ABSOLUTE NEUTROPHILS 5.1 thou/uL (1.4-8.2); BASOPHILS 0.3 % (0.0-2.0); HEMATOCRIT 23.9 % (37.0-47.0); HEMOGLOBIN 7.9 gm/dL (12.0-15.0); MCH 31.1 pg (26.0-34.0); MCHC 32.9 g/dL (28.0-37.0); MCV 94.4 fL (80.0-100.0); MONOCYTES 3.8 % (1.0-8.0); PLATELET COUNT 128 thou/uL (150-400); POLYS 91.9 % (36.0-66.0); RBC 2.53 mil/uL (4.20-5.00); RDW 17.2 % (10.5-14.5); WBC 5.6 thou/uL (4.0-11.0)
[2018-03-03 06:48] LABS: ALBUMIN 2.5 g/dL (3.4-5.0); CALCIUM 9.2 mg/dL (8.5-10.1); CREATININE 1.5 mg/dL (0.6-1.0); PHOSPHORUS 4.6 mg/dL (2.5-4.9); POTASSIUM 4.1 mmol/L (3.5-5.1)
[2018-03-03 08:12] VITALS: BP 173/78
[2018-03-03 11:40] VITALS: BP 158/57
[2018-03-03 16:06] VITALS: BP 193/70
[2018-03-03 19:45] VITALS: BP 135/43
[2018-03-04 03:18] VITALS: BP 155/83
[2018-03-04 05:42] LABS: ABSOLUTE NEUTROPHILS 4.7 thou/uL (1.4-8.2); BASOPHILS 0.2 % (0.0-2.0); HEMATOCRIT 24.1 % (37.0-47.0); HEMOGLOBIN 7.8 gm/dL (12.0-15.0); LYMPHOCYTES 3.8 % (24.0-44.0); MCH 30.5 pg (26.0-34.0); MCHC 32.2 g/dL (28.0-37.0); MCV 94.5 fL (80.0-100.0); MONOCYTES 3.3 % (1.0-8.0); PLATELET COUNT 114 thou/uL (150-400); POLYS 92.7 % (36.0-66.0); RBC 2.55 mil/uL (4.20-5.00); RDW 17.2 % (10.5-14.5); WBC 5.1 thou/uL (4.0-11.0)
[2018-03-04 06:03] LABS: ALBUMIN 2.4 g/dL (3.4-5.0); CALCIUM 8.8 mg/dL (8.5-10.1); CREATININE 1.6 mg/dL (0.6-1.0); POTASSIUM 4.2 mmol/L (3.5-5.1); TOTAL BILIRUBIN 0.9 mg/dL (<0.1-1.0); TOTAL PROTEIN 5.4 g/dL (6.4-8.2)
[2018-03-04 07:13] VITALS: BP 153/62
[2018-03-04 10:39] LABS: BE(vivo) -4.7 mmol/L (-2 to +3); HCO3 20.5 mmol/L (22.0-26.0); PCO2 38.1 mmHg (35.0-45.0); PO2 77.1 mmHg (80.0-100.0); pH 7.348 (7.360-7.450); sO2 94.9 % (92.0-98.0)
[2018-03-04 11:16] VITALS: BP 150/55
[2018-03-04 16:08] VITALS: BP 155/90
[2018-03-04 20:00] VITALS: BP 161/79
[2018-03-04 20:57] LABS: FOLIC ACID 17.6 ng/mL (8.6-58.9); TSH 0.244 uIU/mL (0.358-3.740)
[2018-03-05 03:57] VITALS: BP 176/67
[2018-03-05 07:50] LABS: ABSOLUTE NEUTROPHILS 4.8 thou/uL (1.4-8.2); BASOPHILS 0.3 % (0.0-2.0); HEMATOCRIT 24.7 % (37.0-47.0); HEMOGLOBIN 7.9 gm/dL (12.0-15.0); LYMPHOCYTES 2.7 % (24.0-44.0); MCH 30.6 pg (26.0-34.0); MCHC 32.2 g/dL (28.0-37.0); MCV 94.9 fL (80.0-100.0); MONOCYTES 2.8 % (1.0-8.0); PLATELET COUNT 114 thou/uL (150-400); POLYS 94.2 % (36.0-66.0); RDW 17.5 % (10.5-14.5); WBC 5.1 thou/uL (4.0-11.0)
[2018-03-05 08:05] LABS: % SATURATION 64 % (20-39); ALBUMIN 2.5 g/dL (3.4-5.0); CALCIUM 8.5 mg/dL (8.5-10.1); CREATININE 1.4 mg/dL (0.6-1.0); IRON 163 ug/dL (50-170); PHOSPHORUS 5.2 mg/dL (2.5-4.9); POTASSIUM 4.2 mmol/L (3.5-5.1); TIBC 253 ug/dL (250-450)
[2018-03-05 10:08] VITALS: BP 189/81
[2018-03-05 14:59] VITALS: BP 175/84
[2018-03-05 20:00] VITALS: BP 139/58
[2018-03-06 04:00] VITALS: BP 157/65
[2018-03-06 07:40] VITALS: BP 136/71
[2018-03-06 08:50] LABS: HEMATOCRIT 24.7 % (37.0-47.0); HEMOGLOBIN 7.9 gm/dL (12.0-15.0); MCH 30.3 pg (26.0-34.0); MCV 94.7 fL (80.0-100.0); RBC 2.61 mil/uL (4.20-5.00); RDW 17.5 % (10.5-14.5); WBC 9.9 thou/uL (4.0-11.0)
[2018-03-06 08:57] LABS: CALCIUM 8.1 mg/dL (8.5-10.1); CREATININE 1.4 mg/dL (0.6-1.0); MAGNESIUM 2.4 mg/dL (1.8-2.4); POTASSIUM 4.4 mmol/L (3.5-5.1)
[2018-03-06 11:34] VITALS: BP 159/73
[2018-03-06 17:35] VITALS: BP 185/65
[2018-03-06 19:14] VITALS: BP 151/94
[2018-03-06] MEDS ORDERED: DEMADEX 2020 MG/1 TA PO (20:45)
[2018-03-07 03:58] VITALS: BP 145/56
== END 2018-03-07 07:07 | DRG 871 ==
LOC: ER 09:09 → ICU 10:52 → EROBS 10:52 → ICU 14:20 → 3W 03-02 14:33
PROVIDERS: Emergency Medicine; Hospitalist; Internal Medicine; Internal Medicine Nephrology; Internal Medicine Pulmonary Disease; Specialist
PROC: 02H633Z Insertion of Infusion Device into Right Atrium, Percutaneous Approach (ICD-10-PCS; principal; 2018-02-26)
PROC: 5A09457 Assistance with Respiratory Ventilation, 24-96 Consecutive Hours, Continuous Positive Airway Pressure (ICD-10-PCS; principal; 2018-02-26)
PROC: 5A09357 Assistance with Respiratory Ventilation, Less than 24 Consecutive Hours, Continuous Positive Airway Pressure (ICD-10-PCS; 2018-03-02)
PROC: 5A09357 Assistance with Respiratory Ventilation, Less than 24 Consecutive Hours, Continuous Positive Airway Pressure (ICD-10-PCS; 2018-03-03)
PROC: 5A09357 Assistance with Respiratory Ventilation, Less than 24 Consecutive Hours, Continuous Positive Airway Pressure (ICD-10-PCS; 2018-03-04)
PROC: B24BZZ4 Ultrasonography of Heart with Aorta, Transesophageal (ICD-10-PCS; 2018-03-05)
PROC: 5A09357 Assistance with Respiratory Ventilation, Less than 24 Consecutive Hours, Continuous Positive Airway Pressure (ICD-10-PCS; 2018-03-05)
PROC: 5A09357 Assistance with Respiratory Ventilation, Less than 24 Consecutive Hours, Continuous Positive Airway Pressure (ICD-10-PCS; 2018-03-06)
PROC: 5A09357 Assistance with Respiratory Ventilation, Less than 24 Consecutive Hours, Continuous Positive Airway Pressure (ICD-10-PCS; 2018-03-07)
DX: A41.9 Sepsis, unspecified organism (principal); J18.9 Pneumonia, unspecified organism; E43 Unspecified severe protein-calorie malnutrition; J96.21 Acute and chronic respiratory failure with hypoxia; J96.22 Acute and chronic respiratory failure with hypercapnia; J44.0 Chronic obstructive pulmonary disease with (acute) lower respiratory infection; I13.0 Hypertensive heart and chronic kidney disease with heart failure and stage 1 through stage 4 chronic kidney disease, or unspecified chronic kidney disease; J44.1 Chronic obstructive pulmonary disease with (acute) exacerbation; I50.32 Chronic diastolic (congestive) heart failure; N17.9 Acute kidney failure, unspecified; E87.0 Hyperosmolality and hypernatremia; Z66 Do not resuscitate; E11.22 Type 2 diabetes mellitus with diabetic chronic kidney disease; L97.521 Non-pressure chronic ulcer of other part of left foot limited to breakdown of skin; I25.10 Atherosclerotic heart disease of native coronary artery without angina pectoris; R65.20 Severe sepsis without septic shock; Y95 Nosocomial condition; I27.20 Pulmonary hypertension, unspecified; D64.9 Anemia, unspecified; N18.3 Chronic kidney disease, stage 3 (moderate); I48.0 Paroxysmal atrial fibrillation; M81.0 Age-related osteoporosis without current pathological fracture; H35.30 Unspecified macular degeneration; E66.01 Morbid (severe) obesity due to excess calories; E11.319 Type 2 diabetes mellitus with unspecified diabetic retinopathy without macular edema; Z96.643 Presence of artificial hip joint, bilateral; E11.42 Type 2 diabetes mellitus with diabetic polyneuropathy; Z90.710 Acquired absence of both cervix and uterus; Z86.73 Personal history of transient ischemic attack (TIA), and cerebral infarction without residual deficits; Z95.5 Presence of coronary angioplasty implant and graft; Z68.37 Body mass index [BMI] 37.0-37.9, adult; Z79.4 Long term (current) use of insulin; Z87.891 Personal history of nicotine dependence; Z79.82 Long term (current) use of aspirin; Z79.899 Other long term (current) drug therapy; Z88.1 Allergy status to other antibiotic agents; Z88.8 Allergy status to other drugs, medicaments and biological substances
CPT/HCPCS: 10078; 10879; 27000